=== PATIENT | male | born 1960 | race African-American/Black ===

== ENCOUNTER 2016-05-04 18:46 | Inpatient (IN) | payer OTHER ==
[~2016-05-04] VITALS: Ht 182.9 cm; Wt 93.4 kg
[~2016-05-04 18:46] MED LIST: ALBU2.5V12 NEB; CLON0.3P TD; HYDR-4076 GT; INSU300I SQ; IPRA0.2S9 IH; LABE100T GT; LACT10SO7 GT; LEVE500V GT
[2016-05-04] MEDS ORDERED: VANCOMYCIN 1 GM in IV D5W 250 ML IV ONE (21:00)
[2016-05-04] MEDS ORDERED: IV SET PRIMARY PUMP SET 1 EA INFUS.SET MC ONE ×2 (21:02→23:33)
[2016-05-04 22:11] LABS: BASOPHILS % (AUTO) 0.3 % (0.0-2.0); DIFF TOTAL % 100 %; EOSINOPHILS # (AUTO) 0.4 /CMM (0.0-0.7); HEMATOCRIT 35 % (39-51); HEMOGLOBIN 11.6 g/dL (13.5-17.5); LYMPHOCYTES # (AUTO) 1.8 /CMM (0.8-4.8); LYMPHOCYTES % (AUTO) 12.7 % (20.0-44.0); MEAN CORPUSCULAR HEMOGLOBIN 32 PG (26.0-33.0); MEAN CORPUSCULAR HGB CONC 33 g/dl (31.0-36.0); MEAN CORPUSCULAR VOLUME 95 fL (80-96); MONOCYTES # (AUTO) 1.1 /CMM (0.1-1.30); MONOCYTES % (AUTO) 8.2 % (2.0-12.0); NEUTROPHILS # (AUTO) 10.6 /CMM (1.8-8.9); NEUTROPHILS % (AUTO) 75.8 % (43.0-81.0); PLATELET COUNT (AUTO) 346 /CMM (150-450); RED BLOOD CELL COUNT(AUTO) 3.65 MIL/uL (4.5-6.0)
[2016-05-04 22:17] LABS: CALCIUM, SERUM 10.3 mg/dL (8.5-10.1); CREATININE 0.9 mg/dL (0.6-1.3); POTASSIUM 4.5 mmol/L (3.5-5.1)
[2016-05-04 22:23] LABS: ALBUMIN 4.2 g/dL (3.4-5.0); BILIRUBIN,DIRECT 0.1 mg/dL (0.0-0.2); BILIRUBIN,TOTAL 0.3 mg/dL (0.2-1.0); INDIRECT BILIRUBIN 0.2 mg/dL (0.0-1.1); TOTAL PROTEIN, SERUM 9.3 g/dL (6.4-8.2)
[2016-05-04] MEDS ORDERED: MAG HYDROX/AL HYDROX/SIMETH 30 ML UDC PO PRN (23:00)
[2016-05-04] MEDS ORDERED: MORPHINE SULFATE INJ 2 MG/ML DISP.SYRIN IV PRN (23:00)
[2016-05-04] MEDS ORDERED: ACETAMINOPHEN 325 MG TABLET PO PRN (23:00)
[2016-05-04] MEDS ORDERED: ONDANSETRON HCL/PF 4 MG/2 ML VIAL IVP PRN (23:00)
[2016-05-04] MEDS ORDERED: ENOXAPARIN SODIUM 40 MG/0.4 ML DISP.SYRIN SQ SCH (23:00)
[2016-05-04] MEDS ORDERED: IV NS 0.9% 1,000 ML ONE (23:33)
[2016-05-04] MEDS ORDERED: MORPHINE SULFATE INJ 2 MG/ML DISP.SYRIN ONE (23:34)
[2016-05-04] MEDS ORDERED: ENOXAPARIN SODIUM 40 MG/0.4 ML DISP.SYRIN SQ ONE (23:34)
[2016-05-04] MEDS: IV NS 0.9% 1,000 ML IV PRN (23:49)
[2016-05-05] VITALS: BP 146/100
[2016-05-05] MEDS ORDERED: DEXTROSE 50%-WATER 50 ML DISP.SYRIN IV PRN
[2016-05-05] MEDS ORDERED: LEVETIRACETAM (500MG) 500 MG/5 ML VIAL IV SCH
[2016-05-05] MEDS: INSULIN REGULAR, HUMAN 100 UNIT/ML 3 ML VIAL SQ PRN ×4 (00:46→17:33)
[2016-05-05] MEDS: BLOOD SUGAR DIAGNOSTIC 1 EACH STRIP IN SCH ×5 (00:49→23:44)
[2016-05-05] MEDS ORDERED: LEVETIRACETAM SOL (5 ML) 100 MG/ML UDC ONE (01:10)
[2016-05-05] MEDS: LEVETIRACETAM SOL (5 ML) 100 MG/ML UDC GT SCH ×3 (01:21→20:56)
[2016-05-05] MEDS ORDERED: LEVALBUTEROL HCL NEB 1.25 MG/0.5 ML VIAL.NEB ONE (01:33)
[2016-05-05] MEDS ORDERED: IPRATROPIUM NEB FS 0.5 MG/2.5 ML AMPUL.NEB ONE (01:33)
[2016-05-05] MEDS: ALBUTEROL FS 2.5 MG/0.5 ML VIAL.NEB NEB SCH ×4 (01:45→19:32)
[2016-05-05] MEDS: IPRATROPIUM NEB FS 0.5 MG/2.5 ML AMPUL.NEB IH PRN ×3 (01:45→14:08)
[2016-05-05] MEDS ORDERED: ALBUTEROL FS 2.5 MG/0.5 ML VIAL.NEB ONE (02:04)
[2016-05-05 04:00] VITALS: BP 138/91
[2016-05-05] MEDS ORDERED: LABETALOL HCL (100MG) 100 MG TABLET ONE (04:47)
[2016-05-05] MEDS ORDERED: VANCOMYCIN 1 GM VIAL ONE (04:51)
[2016-05-05] MEDS ORDERED: SECONDARY IV SET 1 EA INFUS.SET MC ONE ×2 (04:52→16:44)
[2016-05-05] MEDS ORDERED: IV D5W 500 ML IV ONE (04:57)
[2016-05-05] MEDS: LABETALOL HCL (100MG) 100 MG TABLET GT SCH ×3 (04:59→20:56)
[2016-05-05] MEDS ORDERED: VANCOMYCIN 1.25 GM in IV D5W 500 ML IV SCH (05:00)
[2016-05-05 06:46] LABS: BASOPHILS % (AUTO) 0.2 % (0.0-2.0); DIFF TOTAL % 100 %; EOSINOPHILS # (AUTO) 0.4 /CMM (0.0-0.7); EOSINOPHILS % (AUTO) 3.1 % (0.0-6.0); HEMATOCRIT 34 % (39-51); HEMOGLOBIN 11.3 g/dL (13.5-17.5); LYMPHOCYTES # (AUTO) 1.9 /CMM (0.8-4.8); LYMPHOCYTES % (AUTO) 13.4 % (20.0-44.0); MEAN CORPUSCULAR HEMOGLOBIN 32 PG (26.0-33.0); MEAN CORPUSCULAR HGB CONC 34 g/dl (31.0-36.0); MEAN CORPUSCULAR VOLUME 96 fL (80-96); MONOCYTES # (AUTO) 1.3 /CMM (0.1-1.30); MONOCYTES % (AUTO) 9.2 % (2.0-12.0); NEUTROPHILS # (AUTO) 10.5 /CMM (1.8-8.9); NEUTROPHILS % (AUTO) 74.1 % (43.0-81.0); PLATELET COUNT (AUTO) 303 /CMM (150-450); WHITE BLOOD COUNT (AUTO) 14.2 K/uL (4.3-11.0)
[2016-05-05 07:41] LABS: CALCIUM, SERUM 9.5 mg/dL (8.5-10.1); CREATININE 0.6 mg/dL (0.6-1.3); PHOSPHORUS 3.6 mg/dL (2.5-4.9); POTASSIUM 3.8 mmol/L (3.5-5.1)
[2016-05-05] MEDS ORDERED: FEE PK DOSING 1 MIN EA MC ONE (08:01)
[2016-05-05] MEDS: PANTOPRAZOLE 40 MG VIAL IV SCH (09:49)
[2016-05-05] MEDS: hydrALAZINE HCL 25 MG TABLET GT SCH ×2 (09:49→16:35)
[2016-05-05 12:00] VITALS: BP 117/79
[2016-05-05] MEDS: Z GUARD REMEDY 2 OZ OINT TP PRN (13:05)
[2016-05-05] MEDS: IV NS 0.9% 1,000 ML IV PRN ×2 (15:19→23:39)
[2016-05-05 16:00] VITALS: BP_SYST 128; BP_DIAS 56; BP_DIAS 79
[2016-05-05] MEDS: VANCOMYCIN 1.25 GM in IV D5W 500 ML IV SCH (17:13)
[2016-05-05] MEDS ORDERED: LIDOCAINE 1%-EPI 1:100,000 20 ML VIAL IJ ONE (18:00)
[2016-05-05] MEDS ORDERED: BETADINE TP ONE (18:00)
[2016-05-05 20:00] VITALS: BP 131/85
[2016-05-05] MEDS: ENOXAPARIN SODIUM 40 MG/0.4 ML DISP.SYRIN SQ SCH (20:58)
[2016-05-06] VITALS: BP 137/90
[2016-05-06] MEDS: ALBUTEROL FS 2.5 MG/0.5 ML VIAL.NEB NEB SCH ×4 (01:16→19:27)
[2016-05-06 04:00] VITALS: BP 145/92
[2016-05-06 04:31] LABS: BASOPHILS % (AUTO) 0.2 % (0.0-2.0); DIFF TOTAL % 100 %; EOSINOPHILS # (AUTO) 0.5 /CMM (0.0-0.7); EOSINOPHILS % (AUTO) 4.4 % (0.0-6.0); HEMATOCRIT 31 % (39-51); HEMOGLOBIN 10.3 g/dL (13.5-17.5); LYMPHOCYTES # (AUTO) 1.9 /CMM (0.8-4.8); LYMPHOCYTES % (AUTO) 18.6 % (20.0-44.0); MEAN CORPUSCULAR HEMOGLOBIN 32 PG (26.0-33.0); MEAN CORPUSCULAR HGB CONC 33 g/dl (31.0-36.0); MEAN CORPUSCULAR VOLUME 95 fL (80-96); MONOCYTES # (AUTO) 1.3 /CMM (0.1-1.30); MONOCYTES % (AUTO) 12.2 % (2.0-12.0); NEUTROPHILS # (AUTO) 6.7 /CMM (1.8-8.9); NEUTROPHILS % (AUTO) 64.6 % (43.0-81.0); PLATELET COUNT (AUTO) 333 /CMM (150-450); RED BLOOD CELL COUNT(AUTO) 3.23 MIL/uL (4.5-6.0); WHITE BLOOD COUNT (AUTO) 10.4 K/uL (4.3-11.0)
[2016-05-06 04:44] LABS: CALCIUM, SERUM 9.6 mg/dL (8.5-10.1); CREATININE 0.7 mg/dL (0.6-1.3); PHOSPHORUS 3.4 mg/dL (2.5-4.9); POTASSIUM 4.1 mmol/L (3.5-5.1)
[2016-05-06] MEDS: VANCOMYCIN 1.25 GM in IV D5W 500 ML IV SCH (05:36)
[2016-05-06] MEDS: LABETALOL HCL (100MG) 100 MG TABLET GT SCH ×3 (05:37→21:16)
[2016-05-06] MEDS: BLOOD SUGAR DIAGNOSTIC 1 EACH STRIP IN SCH ×3 (05:37→18:26)
[2016-05-06] MEDS: INSULIN REGULAR, HUMAN 100 UNIT/ML 3 ML VIAL SQ PRN ×3 (05:39→18:28)
[2016-05-06] MEDS: IPRATROPIUM NEB FS 0.5 MG/2.5 ML AMPUL.NEB IH PRN ×2 (07:29→13:33)
[2016-05-06 08:00] VITALS: BP 134/88
[2016-05-06] MEDS: LEVETIRACETAM SOL (5 ML) 100 MG/ML UDC GT SCH ×2 (09:27→21:15)
[2016-05-06] MEDS: PANTOPRAZOLE 40 MG VIAL IV SCH (09:27)
[2016-05-06] MEDS: hydrALAZINE HCL 25 MG TABLET GT SCH ×2 (09:27→16:36)
[2016-05-06 12:00] VITALS: BP 115/71
[2016-05-06 16:00] VITALS: BP 133/86
[2016-05-06] MEDS: VANCOMYCIN 1 GM in IV D5W 250 ML IV SCH (16:34)
[2016-05-06] MEDS: IV NS 0.9% 1,000 ML IV PRN (16:35)
[2016-05-06 20:00] VITALS: BP 124/92
[2016-05-06] MEDS: ENOXAPARIN SODIUM 40 MG/0.4 ML DISP.SYRIN SQ SCH (21:17)
[2016-05-07] VITALS: BP 140/89
[2016-05-07] MEDS ORDERED: CLONIDINE HCL 0.3 MG/24H PTWK 1 EA PATCH TD SCH
[2016-05-07] MEDS ORDERED: CLONIDINE HCL 0.3 MG/24H PTWK 1 EA PATCH TD ONE (00:29)
[2016-05-07] MEDS: PIPERACILLIN /TAZOBACTAM 3.375 G in IV D5W 50 ML IV SCH ×3 (00:46→13:46)
[2016-05-07] MEDS: BLOOD SUGAR DIAGNOSTIC 1 EACH STRIP IN SCH ×3 (00:46→13:46)
[2016-05-07] MEDS ORDERED: SECONDARY IV SET 1 EA INFUS.SET MC ONE (00:48)
[2016-05-07] MEDS: ALBUTEROL FS 2.5 MG/0.5 ML VIAL.NEB NEB SCH ×3 (01:27→13:19)
[2016-05-07 04:00] VITALS: BP 131/80
[2016-05-07] MEDS: LABETALOL HCL (100MG) 100 MG TABLET GT SCH ×2 (06:24→13:47)
[2016-05-07] MEDS: VANCOMYCIN 1 GM in IV D5W 250 ML IV SCH (06:24)
[2016-05-07] MEDS: IV NS 0.9% 1,000 ML IV PRN (06:25)
[2016-05-07] MEDS: INSULIN REGULAR, HUMAN 100 UNIT/ML 3 ML VIAL SQ PRN ×2 (06:30→13:51)
[2016-05-07 07:05] LABS: BASOPHILS % (AUTO) 0.3 % (0.0-2.0); EOSINOPHILS % (AUTO) 4.2 % (0.0-6.0); HEMATOCRIT 29 % (39-51); HEMOGLOBIN 9.8 g/dL (13.5-17.5); LYMPHOCYTES % (AUTO) 20.4 % (20.0-44.0); MEAN CORPUSCULAR HEMOGLOBIN 32 PG (26.0-33.0); MEAN CORPUSCULAR HGB CONC 33 g/dl (31.0-36.0); MEAN CORPUSCULAR VOLUME 95 fL (80-96); MONOCYTES % (AUTO) 13.5 % (2.0-12.0); NEUTROPHILS % (AUTO) 61.6 % (43.0-81.0); PLATELET COUNT (AUTO) 319 /CMM (150-450); RED BLOOD CELL COUNT(AUTO) 3.12 MIL/uL (4.5-6.0); WHITE BLOOD COUNT (AUTO) 9.3 K/uL (4.3-11.0)
[2016-05-07 07:06] LABS: DIFF TOTAL % 100 %; EOSINOPHILS # (AUTO) 0.4 /CMM (0.0-0.7); LYMPHOCYTES # (AUTO) 1.9 /CMM (0.8-4.8); MONOCYTES # (AUTO) 1.3 /CMM (0.1-1.30); NEUTROPHILS # (AUTO) 5.7 /CMM (1.8-8.9)
[2016-05-07 07:27] LABS: CALCIUM, SERUM 9.5 mg/dL (8.5-10.1); CREATININE 0.8 mg/dL (0.6-1.3); POTASSIUM 3.8 mmol/L (3.5-5.1)
[2016-05-07 08:00] VITALS: BP 112/73
[2016-05-07] MEDS: PANTOPRAZOLE 40 MG VIAL IV SCH (10:13)
[2016-05-07] MEDS: LEVETIRACETAM SOL (5 ML) 100 MG/ML UDC GT SCH (10:13)
[2016-05-07] MEDS: hydrALAZINE HCL 25 MG TABLET GT SCH (10:17)
[2016-05-07] MEDS: Z GUARD REMEDY 2 OZ OINT TP PRN (10:19)
[2016-05-07 12:00] VITALS: BP 110/59
[2016-05-07 13:47] VITALS: BP 110/59
== END 2016-05-07 18:02 | DRG 383 ==
LOC: ER 18:52 → TELE1 22:39
PROVIDERS: ADMIT Internal Medicine; ATTEND Internal Medicine
PROC: 5A1945Z Respiratory Ventilation, 24-96 Consecutive Hours (ICD-10-PCS; principal; 2016-05-04)
PROC: 0H95XZZ Drainage of Chest Skin, External Approach (ICD-10-PCS; 2016-05-06)
DX: L03.313 Cellulitis of chest wall (principal); G93.1 Anoxic brain damage, not elsewhere classified; Z99.11 Dependence on respirator [ventilator] status; N17.9 Acute kidney failure, unspecified; E87.0 Hyperosmolality and hypernatremia; J96.11 Chronic respiratory failure with hypoxia; R53.2 Functional quadriplegia; Z93.1 Gastrostomy status; E11.9 Type 2 diabetes mellitus without complications; D63.8 Anemia in other chronic diseases classified elsewhere; Z86.73 Personal history of transient ischemic attack (TIA), and cerebral infarction without residual deficits; L02.213 Cutaneous abscess of chest wall; Z79.4 Long term (current) use of insulin; E78.5 Hyperlipidemia, unspecified; I10 Essential (primary) hypertension; I25.10 Atherosclerotic heart disease of native coronary artery without angina pectoris; J98.11 Atelectasis; R13.10 Dysphagia, unspecified; Z93.0 Tracheostomy status; Z86.74 Personal history of sudden cardiac arrest
CPT/HCPCS: 31720; 36415; 71010-TC; 80048-TC; 80076-TC; 80202-TC; 82962-TC; 83735-TC; 84100-TC; 85025-TC; 87040-TC; 87070-TC; 87081-TC; 87186-TC; 94002-TC; 94003-TC; A4606; A6253; A6402; A6403; A6407; C9113; J1650; J1815; J1953; J2270; J2543; J3370; J3490; J7030; J7060; Z7610

== ENCOUNTER 2017-10-24 12:09 | Inpatient (IN) | payer OTHER ==
[~2017-10-24] VITALS: Ht 177.8 cm; Wt 118.8 kg
[~2017-10-24 12:09] MED LIST changes: -ALBU2.5V12 NEB; +ALBU2.5V13 NEB; -LABE100T GT; +LABE100T5 GT
[2017-10-24] MEDS ORDERED: ASPI-1169 GT (12:31)
[2017-10-24] MEDS ORDERED: OMEP20CA10 GT (12:31)
[2017-10-24] MEDS ORDERED: ISOS10TA2 GT (12:31)
[2017-10-24] MEDS ORDERED: POTA20PA34 GT (12:31)
[2017-10-24] MEDS ORDERED: FURO-145 GT (12:31)
[2017-10-24] MEDS ORDERED: METF500T6 GT (12:31)
[2017-10-24] MEDS ORDERED: BACL10TA GT (12:31)
[2017-10-24] MEDS ORDERED: CHLO473M5 MM (12:31)
[2017-10-24] MEDS ORDERED: HYDR-4076 GT (12:31)
[2017-10-24] MEDS ORDERED: BISA10SU8 RC (12:31)
[2017-10-24] MEDS ORDERED: MAGN400O6 GT (12:31)
[2017-10-24] MEDS ORDERED: POLY17PO4 GT (12:31)
[2017-10-24] MEDS ORDERED: NA P133E RC ×2 (12:31)
[2017-10-24] MEDS ORDERED: ACET650S26 GT (12:31)
[2017-10-24] MEDS ORDERED: NUT.237L30 GT (12:35)
[2017-10-24] MEDS ORDERED: IV NS 0.9% 1,000 ML BAG IV ONE (13:00)
[2017-10-24 13:16] LABS: BASOPHILS # (AUTO) 0.1 /CMM (0.0-0.2); BASOPHILS % (AUTO) 0.9 % (0.0-2.0); EOSINOPHILS % (AUTO) 4.3 % (0.0-6.0); HEMATOCRIT 30 % (39-51); HEMOGLOBIN 10.5 g/dL (13.5-17.5); LYMPHOCYTES # (AUTO) 1.4 /CMM (0.8-4.8); MEAN CORPUSCULAR HEMOGLOBIN 32 PG (26.0-33.0); MEAN CORPUSCULAR HGB CONC 35 g/dl (31.0-36.0); MEAN CORPUSCULAR VOLUME 92 fL (80-96); MONOCYTES # (AUTO) 0.9 /CMM (0.1-1.30); MONOCYTES % (AUTO) 11.1 % (2.0-12.0); NEUTROPHILS # (AUTO) 5.4 /CMM (1.8-8.9); NEUTROPHILS % (AUTO) 66.7 % (43.0-81.0); PLATELET COUNT (AUTO) 230 /CMM (150-450); WHITE BLOOD COUNT (AUTO) 8.1 K/uL (4.3-11.0)
[2017-10-24 13:33] LABS: BILIRUBIN,URINE Negative (NEGATIVE); BLOOD, URINE Moderate Ery/uL (NEGATIVE); COLOR,URINE Yellow (YELLOW); KETONES,URINE Negative (NEGATIVE); LEUKOCYTE ESTERASE ,URINE Large (NEGATIVE); NITRITE, URINE Positive (NEGATIVE); PROTEIN,URINE 100 mg/dl (NEGATIVE); UGLUCOSE Negative (NEGATIVE); UROBILINOGEN,URINE 0.2 EU/dL (0.2)
[2017-10-24 13:34] LABS: CALCIUM, SERUM 9.2 mg/dL (8.5-10.1); CARBON DIOXIDE 22 mmol/L (21-32); CHLORIDE 103 mmol/L (98-107); CREATININE 0.6 mg/dL (0.6-1.3); GLUCOSE 104 mg/dL (74-106); POTASSIUM 3.8 mmol/L (3.5-5.1); SODIUM SERUM 135 mmol/L (136-145); UREA NITROGEN, BLOOD 13 mg/dL (7-18)
[2017-10-24 13:40] LABS: ALANINE AMINOTRANSFERASE 21 U/L (12-78); ALBUMIN 3.8 g/dL (3.4-5.0); ALKALINE PHOSPHATASE 78 U/L (46-116); ASPARTATE AMINOTRANSFERASE 11 U/L (15-37); BILIRUBIN,DIRECT 0.1 mg/dL (0.0-0.2); BILIRUBIN,TOTAL 0.3 mg/dL (0.2-1.0); TOTAL PROTEIN, SERUM 8.1 g/dL (6.4-8.2)
[2017-10-24 13:42] LABS: TROPONIN I < 0.017 ng/mL (0.00-0.056)
[2017-10-24 13:43] LABS: INR 0.98 (0.85-1.15)
[2017-10-24 13:53] LABS: APPEARANCE,URINE SLIGHTLY CLOUDY (CLEAR)
[2017-10-24 14:00] LABS: BACTERIA,URINE Moderate /HPF (None Seen); WBC,URINE 51-80 /HPF (0-3)
[2017-10-24] MEDS ORDERED: CEFTRIAXONE 1GM BAG (ER ONLY) 50 ML IV ONE (14:00)
[2017-10-24 14:01] LABS: SQUAMOUS EPITHELIAL CELL,UR Few /HPF (None Seen)
[2017-10-24 20:00] VITALS: BP_SYST 114; BP_SYST 136; BP_DIAS 69; BP_DIAS 85
[2017-10-24] MEDS ORDERED: ALBUTEROL FS 2.5 MG/0.5 ML VIAL.NEB NEB PRN (20:00)
[2017-10-24] MEDS ORDERED: DEXTROSE 50%-WATER 50 ML DISP.SYRIN IV PRN (20:00)
[2017-10-24] MEDS ORDERED: IPRATROPIUM NEB FS 0.5 MG/2.5 ML AMPUL.NEB IH PRN (20:00)
[2017-10-24] MEDS ORDERED: IV D5/0.45 NACL 1,000 ML IV PRN (21:00)
[2017-10-24] MEDS: IV D5/0.45 NACL 1,000 ML IV PRN (22:11)
[2017-10-25] VITALS (7 sets, daily range): BP systolic 93–149; BP diastolic 52–91
[2017-10-25] MEDS: BLOOD SUGAR DIAGNOSTIC 1 EACH STRIP IN SCH ×4 (00:16→17:24)
[2017-10-25] MEDS: ALBUTEROL FS 2.5 MG/0.5 ML VIAL.NEB NEB SCH ×4 (01:58→19:39)
[2017-10-25] MEDS: IPRATROPIUM NEB FS 0.5 MG/2.5 ML AMPUL.NEB IH SCH ×4 (01:58→19:39)
[2017-10-25 07:01] LABS: BASOPHILS % (AUTO) 0.3 % (0.0-2.0); EOSINOPHILS % (AUTO) 2.3 % (0.0-6.0); HEMATOCRIT 32 % (39-51); HEMOGLOBIN 10.7 g/dL (13.5-17.5); LYMPHOCYTES # (AUTO) 1.5 /CMM (0.8-4.8); LYMPHOCYTES % (AUTO) 14.8 % (20.0-44.0); MEAN CORPUSCULAR HEMOGLOBIN 32 PG (26.0-33.0); MEAN CORPUSCULAR HGB CONC 34 g/dl (31.0-36.0); MEAN CORPUSCULAR VOLUME 96 fL (80-96); MONOCYTES # (AUTO) 1.2 /CMM (0.1-1.30); MONOCYTES % (AUTO) 11.9 % (2.0-12.0); NEUTROPHILS # (AUTO) 7.2 /CMM (1.8-8.9); NEUTROPHILS % (AUTO) 70.7 % (43.0-81.0); PLATELET COUNT (AUTO) 264 /CMM (150-450); RDW COEFFICIENT OF VARIATION 14.8 (11.5-15.0); RED BLOOD CELL COUNT(AUTO) 3.35 MIL/uL (4.5-6.0); WHITE BLOOD COUNT (AUTO) 10.2 K/uL (4.3-11.0)
[2017-10-25 07:13] LABS: CALCIUM, SERUM 8.9 mg/dL (8.5-10.1); CREATININE 0.6 mg/dL (0.6-1.3); POTASSIUM 3.8 mmol/L (3.5-5.1)
[2017-10-25] MEDS ORDERED: Z GUARD REMEDY 2 OZ OINT TP PRN (11:00)
[2017-10-25] MEDS: IV D5/0.45 NACL 1,000 ML IV PRN (11:38)
[2017-10-25] MEDS: HYDROGEL DRESSING 90 GM TUBE TP SCH (11:43)
[2017-10-25] MEDS: Z GUARD REMEDY 2 OZ OINT TP SCH (11:43)
[2017-10-25] MEDS: INSULIN REGULAR, HUMAN 100 UNIT/ML 3 ML VIAL SQ PRN (11:46)
[2017-10-26] VITALS: BP 136/93
[2017-10-26] MEDS: BLOOD SUGAR DIAGNOSTIC 1 EACH STRIP IN SCH ×4 (00:27→17:54)
[2017-10-26] MEDS: IPRATROPIUM NEB FS 0.5 MG/2.5 ML AMPUL.NEB IH SCH ×4 (00:49→20:09)
[2017-10-26] MEDS: ALBUTEROL FS 2.5 MG/0.5 ML VIAL.NEB NEB SCH ×4 (00:49→20:09)
[2017-10-26] MEDS: IV D5/0.45 NACL 1,000 ML IV PRN ×2 (03:36→20:56)
[2017-10-26 04:00] VITALS: BP 131/98
[2017-10-26] MEDS: LIPASE/PROTEASE/AMYLASE 1 EACH CAPSULE.DR PO SCH ×4 (05:08→18:00)
[2017-10-26] MEDS: GLUCERNA 1.2 1,000 ML BOTTLE GT SCH ×4 (05:08→18:00)
[2017-10-26 08:00] VITALS: BP 136/94
[2017-10-26] MEDS: HYDROGEL DRESSING 90 GM TUBE TP SCH (09:13)
[2017-10-26] MEDS: Z GUARD REMEDY 2 OZ OINT TP SCH (09:14)
[2017-10-26 12:00] VITALS: BP 135/90
[2017-10-26 16:00] VITALS: BP 137/94
[2017-10-26 20:00] VITALS: BP_SYST 154; BP_DIAS 121; BP_DIAS 90
[2017-10-27] VITALS (8 sets, daily range): BP systolic 100–143; BP diastolic 54–94
[2017-10-27] MEDS: BLOOD SUGAR DIAGNOSTIC 1 EACH STRIP IN SCH ×4 (00:26→17:09)
[2017-10-27] MEDS: ALBUTEROL FS 2.5 MG/0.5 ML VIAL.NEB NEB SCH ×4 (01:51→20:07)
[2017-10-27] MEDS: IPRATROPIUM NEB FS 0.5 MG/2.5 ML AMPUL.NEB IH SCH ×4 (01:51→20:07)
[2017-10-27] MEDS: LIPASE/PROTEASE/AMYLASE 1 EACH CAPSULE.DR PO SCH ×4 (06:00→17:09)
[2017-10-27] MEDS: GLUCERNA 1.2 1,000 ML BOTTLE GT SCH ×4 (06:00→17:09)
[2017-10-27] MEDS: HYDROGEL DRESSING 90 GM TUBE TP SCH (08:17)
[2017-10-27] MEDS: Z GUARD REMEDY 2 OZ OINT TP SCH (08:18)
[2017-10-27 08:58] LABS: BASOPHILS % (AUTO) 0.2 % (0.0-2.0); EOSINOPHILS % (AUTO) 2.2 % (0.0-6.0); HEMATOCRIT 32 % (39-51); HEMOGLOBIN 10.5 g/dL (13.5-17.5); LYMPHOCYTES # (AUTO) 0.8 /CMM (0.8-4.8); LYMPHOCYTES % (AUTO) 7.3 % (20.0-44.0); MEAN CORPUSCULAR HEMOGLOBIN 31 PG (26.0-33.0); MEAN CORPUSCULAR HGB CONC 32 g/dl (31.0-36.0); MEAN CORPUSCULAR VOLUME 96 fL (80-96); MONOCYTES # (AUTO) 1.3 /CMM (0.1-1.30); MONOCYTES % (AUTO) 11.6 % (2.0-12.0); NEUTROPHILS # (AUTO) 8.9 /CMM (1.8-8.9); NEUTROPHILS % (AUTO) 78.7 % (43.0-81.0); PLATELET COUNT (AUTO) 199 /CMM (150-450); RDW COEFFICIENT OF VARIATION 15.2 (11.5-15.0); RED BLOOD CELL COUNT(AUTO) 3.39 MIL/uL (4.5-6.0); WHITE BLOOD COUNT (AUTO) 11.3 K/uL (4.3-11.0)
[2017-10-27 09:25] LABS: ALBUMIN 3.4 g/dL (3.4-5.0); BILIRUBIN,TOTAL 0.5 mg/dL (0.2-1.0); CALCIUM, SERUM 8.7 mg/dL (8.5-10.1); CREATININE 0.6 mg/dL (0.6-1.3); POTASSIUM 3.9 mmol/L (3.5-5.1); TOTAL PROTEIN, SERUM 7.3 g/dL (6.4-8.2)
[2017-10-27] MEDS: IV D5/0.45 NACL 1,000 ML IV PRN (11:19)
[2017-10-27] MEDS: INSULIN REGULAR, HUMAN 100 UNIT/ML 3 ML VIAL SQ PRN ×2 (12:18→17:30)
[2017-10-28] VITALS: BP 132/87
[2017-10-28] MEDS: BLOOD SUGAR DIAGNOSTIC 1 EACH STRIP IN SCH ×4 (00:26→18:05)
[2017-10-28] MEDS: INSULIN REGULAR, HUMAN 100 UNIT/ML 3 ML VIAL SQ PRN ×4 (00:27→11:24)
[2017-10-28] MEDS: IPRATROPIUM NEB FS 0.5 MG/2.5 ML AMPUL.NEB IH SCH ×4 (02:26→19:55)
[2017-10-28] MEDS: ALBUTEROL FS 2.5 MG/0.5 ML VIAL.NEB NEB SCH ×4 (02:27→19:55)
[2017-10-28] MEDS: IV D5/0.45 NACL 1,000 ML IV PRN ×2 (03:01→16:12)
[2017-10-28 04:00] VITALS: BP 132/87
[2017-10-28 08:00] VITALS: BP 124/80
[2017-10-28] MEDS: HYDROGEL DRESSING 90 GM TUBE TP SCH (08:39)
[2017-10-28] MEDS: Z GUARD REMEDY 2 OZ OINT TP SCH (08:39)
[2017-10-28 12:00] VITALS: BP 116/80
[2017-10-28] MEDS: LIPASE/PROTEASE/AMYLASE 1 EACH CAPSULE.DR PO SCH ×2 (12:00→18:00)
[2017-10-28] MEDS: GLUCERNA 1.2 1,000 ML BOTTLE GT SCH ×2 (12:00→18:00)
[2017-10-28 16:00] VITALS: BP_SYST 105; BP_SYST 118; BP_DIAS 54; BP_DIAS 79
[2017-10-28] MEDS ORDERED: NS 0.9% IV SCH (18:00)
[2017-10-28] MEDS ORDERED: LEVETIRACETAM IV SCH (18:00)
[2017-10-28] MEDS ORDERED: LEVETIRACETAM (500MG) 500 MG in IV NS 0.9% 100 ML IV SCH (18:00)
[2017-10-28] MEDS: LEVETIRACETAM (500MG) 500 MG in IV NS 0.9% 100 ML IV SCH (18:21)
[2017-10-28 20:00] VITALS: BP 127/72
[2017-10-29] VITALS: BP 131/78
[2017-10-29] MEDS: BLOOD SUGAR DIAGNOSTIC 1 EACH STRIP IN SCH ×4 (00:38→17:05)
[2017-10-29] MEDS: INSULIN REGULAR, HUMAN 100 UNIT/ML 3 ML VIAL SQ PRN ×3 (00:46→11:37)
[2017-10-29] MEDS: IPRATROPIUM NEB FS 0.5 MG/2.5 ML AMPUL.NEB IH SCH ×4 (02:09→15:56)
[2017-10-29] MEDS: ALBUTEROL FS 2.5 MG/0.5 ML VIAL.NEB NEB SCH ×4 (02:09→20:14)
[2017-10-29 04:00] VITALS: BP 139/83
[2017-10-29] MEDS: GLUCERNA 1.2 1,000 ML BOTTLE GT SCH ×4 (05:24→18:10)
[2017-10-29] MEDS: LIPASE/PROTEASE/AMYLASE 1 EACH CAPSULE.DR PO SCH ×4 (05:24→18:19)
[2017-10-29 08:00] VITALS: BP 100/68
[2017-10-29] MEDS: Z GUARD REMEDY 2 OZ OINT TP SCH (08:45)
[2017-10-29] MEDS: HYDROGEL DRESSING 90 GM TUBE TP SCH (08:46)
[2017-10-29] MEDS: LEVETIRACETAM (500MG) 500 MG in IV NS 0.9% 100 ML IV SCH (09:39)
[2017-10-29 12:00] VITALS: BP 110/73
[2017-10-29 16:00] VITALS: BP 119/76
[2017-10-29 20:00] VITALS: BP 124/81
[2017-10-29] MEDS: LEVETIRACETAM SOL (5 ML) 100 MG/ML UDC GT SCH (21:16)
[2017-10-30] VITALS: BP 102/69
[2017-10-30] MEDS: BLOOD SUGAR DIAGNOSTIC 1 EACH STRIP IN SCH ×6 (00:52→23:51)
[2017-10-30] MEDS: LIPASE/PROTEASE/AMYLASE 1 EACH CAPSULE.DR PO SCH ×5 (00:52→23:51)
[2017-10-30] MEDS: GLUCERNA 1.2 1,000 ML BOTTLE GT SCH ×4 (00:53→18:30)
[2017-10-30] MEDS: ALBUTEROL FS 2.5 MG/0.5 ML VIAL.NEB NEB SCH ×4 (02:02→19:54)
[2017-10-30] MEDS: IPRATROPIUM NEB FS 0.5 MG/2.5 ML AMPUL.NEB IH SCH ×4 (02:02→19:53)
[2017-10-30 04:00] VITALS: BP 106/72
[2017-10-30] MEDS: INSULIN REGULAR, HUMAN 100 UNIT/ML 3 ML VIAL SQ PRN ×2 (05:41→13:08)
[2017-10-30 08:00] VITALS: BP 110/85
[2017-10-30] MEDS: LEVETIRACETAM SOL (5 ML) 100 MG/ML UDC GT SCH ×2 (09:10→21:27)
[2017-10-30] MEDS: Z GUARD REMEDY 2 OZ OINT TP SCH (09:10)
[2017-10-30 12:00] VITALS: BP 120/83
[2017-10-30 16:00] VITALS: BP 118/74
[2017-10-30 20:00] VITALS: BP 142/87
[2017-10-30] MEDS ORDERED: ATORVASTATIN 10 MG TABLET PO SCH (22:00)
[2017-10-31] VITALS: BP 139/85
[2017-10-31] MEDS: GLUCERNA 1.2 1,000 ML BOTTLE GT SCH ×4 (00:06→17:29)
[2017-10-31] MEDS: INSULIN REGULAR, HUMAN 100 UNIT/ML 3 ML VIAL SQ PRN ×3 (00:09→12:25)
[2017-10-31] MEDS: IPRATROPIUM NEB FS 0.5 MG/2.5 ML AMPUL.NEB IH SCH ×3 (01:42→13:20)
[2017-10-31] MEDS: ALBUTEROL FS 2.5 MG/0.5 ML VIAL.NEB NEB SCH ×3 (01:42→13:19)
[2017-10-31 04:00] VITALS: BP 133/85
[2017-10-31] MEDS: BLOOD SUGAR DIAGNOSTIC 1 EACH STRIP IN SCH ×3 (05:28→17:29)
[2017-10-31] MEDS: LIPASE/PROTEASE/AMYLASE 1 EACH CAPSULE.DR PO SCH ×3 (05:28→17:29)
[2017-10-31 06:20] LABS: BASOPHILS % (AUTO) 0.3 % (0.0-2.0); EOSINOPHILS % (AUTO) 5.1 % (0.0-6.0); HEMATOCRIT 31 % (39-51); HEMOGLOBIN 10.3 g/dL (13.5-17.5); LYMPHOCYTES # (AUTO) 1.4 /CMM (0.8-4.8); LYMPHOCYTES % (AUTO) 17.2 % (20.0-44.0); MEAN CORPUSCULAR HEMOGLOBIN 32 PG (26.0-33.0); MEAN CORPUSCULAR HGB CONC 34 g/dl (31.0-36.0); MEAN CORPUSCULAR VOLUME 95 fL (80-96); MONOCYTES # (AUTO) 0.9 /CMM (0.1-1.30); MONOCYTES % (AUTO) 10.5 % (2.0-12.0); NEUTROPHILS # (AUTO) 5.5 /CMM (1.8-8.9); NEUTROPHILS % (AUTO) 66.9 % (43.0-81.0); PLATELET COUNT (AUTO) 235 /CMM (150-450); RDW COEFFICIENT OF VARIATION 15.4 (11.5-15.0); RED BLOOD CELL COUNT(AUTO) 3.24 MIL/uL (4.5-6.0); WHITE BLOOD COUNT (AUTO) 8.2 K/uL (4.3-11.0)
[2017-10-31 06:31] VITALS: BP 139/85
[2017-10-31 08:00] VITALS: BP 124/85
[2017-10-31] MEDS ORDERED: ASPIRIN 81 MG TAB.CHEW GT SCH (09:00)
[2017-10-31] MEDS: LEVETIRACETAM SOL (5 ML) 100 MG/ML UDC GT SCH (09:18)
[2017-10-31] MEDS: HYDROGEL DRESSING 90 GM TUBE TP PRN ×2 (09:19→09:20)
[2017-10-31] MEDS: Z GUARD REMEDY 2 OZ OINT TP SCH (09:20)
[2017-10-31 12:00] VITALS: BP 114/75
[2017-10-31 16:00] VITALS: BP 114/75
== END 2017-10-31 17:58 | DRG 282 ==
LOC: ER 12:11 → TELE1 15:03
PROVIDERS: ADMIT Internal Medicine; ATTEND Internal Medicine
PROC: 5A1955Z Respiratory Ventilation, Greater than 96 Consecutive Hours (ICD-10-PCS; principal; 2017-10-24)
DX: K86.89 Other specified diseases of pancreas (principal); G93.1 Anoxic brain damage, not elsewhere classified; R40.3 Persistent vegetative state; Z99.11 Dependence on respirator [ventilator] status; J96.11 Chronic respiratory failure with hypoxia; K56.609 Unspecified intestinal obstruction, unspecified as to partial versus complete obstruction; L89.893 Pressure ulcer of other site, stage 3; Z93.0 Tracheostomy status; R13.10 Dysphagia, unspecified; N39.0 Urinary tract infection, site not specified; K86.1 Other chronic pancreatitis; R14.0 Abdominal distension (gaseous); Z93.1 Gastrostomy status; G40.409 Other generalized epilepsy and epileptic syndromes, not intractable, without status epilepticus; J98.11 Atelectasis; E11.9 Type 2 diabetes mellitus without complications; I10 Essential (primary) hypertension; I25.10 Atherosclerotic heart disease of native coronary artery without angina pectoris; I48.0 Paroxysmal atrial fibrillation; Z86.73 Personal history of transient ischemic attack (TIA), and cerebral infarction without residual deficits; Z86.74 Personal history of sudden cardiac arrest; K56.7 Ileus, unspecified; B96.89 Other specified bacterial agents as the cause of diseases classified elsewhere; E27.8 Other specified disorders of adrenal gland; L98.8 Other specified disorders of the skin and subcutaneous tissue; S71.001A Unspecified open wound, right hip, initial encounter; X58.XXXA Exposure to other specified factors, initial encounter; Y93.9 Activity, unspecified; Y92.129 Unspecified place in nursing home as the place of occurrence of the external cause; D72.829 Elevated white blood cell count, unspecified; D63.8 Anemia in other chronic diseases classified elsewhere; N40.0 Benign prostatic hyperplasia without lower urinary tract symptoms; Z79.84 Long term (current) use of oral hypoglycemic drugs
CPT/HCPCS: 31720; 36415; 71045-TC; 74018; 80048-TC; 80053-TC; 80076-TC; 81000-TC; 82962-TC; 83605-TC; 84484-TC; 85025-TC; 85730-TC; 87040-TC; 87081-TC; 87086-TC; 87186-TC; 94002-TC; 94003-TC; 94760-TC; 94762-TC; 99082-TC; A4606; A6248; A6402; A6407; J0696; J1815; J1953; J3490; J7030; Z7610

== ENCOUNTER 2018-04-16 14:01 | Inpatient (IN) | payer OTHER ==
[~2018-04-16] VITALS: Ht 172.7 cm; Wt 83.9 kg
[~2018-04-16 14:01] MED LIST changes: -CLON0.3P TD; -HYDR-4076 GT; -INSU300I SQ; -LABE100T5 GT; -LACT10SO7 GT; -LEVE500V GT
--- NOTE | 2018-04-16 14:38 | NUR ---
PT'S CURRENT VENT SETTINGS, AC 12, VT 550 FIO2 40% PEEP 5
--- NOTE | 2018-04-16 14:40 | NUR ---
FORTINO VIRK AT BEDSIDE FOR EVAL.
--- NOTE | 2018-04-16 15:10 | NUR ---
RADIOLOGY AT BEDSIDE FOR CHEST XAY.
[2018-04-16 15:12] LABS: BASOPHILS % (AUTO) 0.3 % (0.0-2.0); EOSINOPHILS % (AUTO) 3.9 % (0.0-6.0); HEMATOCRIT 33 % (39-51); HEMOGLOBIN 11.1 g/dL (13.5-17.5); LYMPHOCYTES # (AUTO) 1.2 /CMM (0.8-4.8); LYMPHOCYTES % (AUTO) 10.5 % (20.0-44.0); MEAN CORPUSCULAR HGB CONC 34 g/dl (31.0-36.0); MEAN CORPUSCULAR VOLUME 98 fL (80-96); MONOCYTES # (AUTO) 1.3 /CMM (0.1-1.30); NEUTROPHILS # (AUTO) 8.1 /CMM (1.8-8.9); NEUTROPHILS % (AUTO) 73.3 % (43.0-81.0); PLATELET COUNT (AUTO) 230 /CMM (150-450); RED BLOOD CELL COUNT(AUTO) 3.38 MIL/uL (4.5-6.0)
[2018-04-16 15:27] LABS: CALCIUM, SERUM 9.2 mg/dL (8.5-10.1); CREATININE 0.6 mg/dL (0.6-1.3); POTASSIUM 4.8 mmol/L (3.5-5.1)
[2018-04-16 15:28] LABS: BILIRUBIN,DIRECT 0.1 mg/dL (0.0-0.2); BILIRUBIN,TOTAL 0.4 mg/dL (0.2-1.0); TOTAL PROTEIN, SERUM 8.1 g/dL (6.4-8.2)
--- NOTE | 2018-04-16 15:48 | NUR ---
RT PATIENT TRACHED RECEIVED ON VENT SETTINGS PER FACILITY, NO SOB, NO RESPIRATORY DISTRESS NOTED AT THIS TIME, AMBU BAG AND SPARE TRACH BY HOB, VENT ALARMS ON, AUDIBLE, AND VENT PLUGGED IN RED OUTLET, WILL CONTINUE TO MONITOR. Addendum: 04/16/18 at 1551 by SERENITY HAYES RT Amended: Links added.
[2018-04-16 16:03] LABS: APPEARANCE,URINE Slightly Cloudy (CLEAR); BILIRUBIN,URINE Negative (NEGATIVE); BLOOD, URINE Negative Ery/uL (NEGATIVE); COLOR,URINE Yellow (YELLOW); KETONES,URINE Trace (NEGATIVE); LEUKOCYTE ESTERASE ,URINE Moderate (NEGATIVE); NITRITE, URINE Positive (NEGATIVE); PROTEIN,URINE Trace mg/dl (NEGATIVE); UGLUCOSE 250 MG/DL mg/dL (NEGATIVE); UROBILINOGEN,URINE 0.2 EU/dL (0.2)
[2018-04-16 16:12] LABS: BACTERIA,URINE Moderate /HPF (None Seen); RBC,URINE 0-3 /HPF (0-2); SQUAMOUS EPITHELIAL CELL,UR Few /HPF (None Seen); WBC,URINE 20-50 /HPF (0-3)
[2018-04-16] MEDS ORDERED: VANCOMYCIN 1 GM in IV D5W 250 ML IV ONE (16:30)
[2018-04-16] MEDS ORDERED: CEFAZOLIN 1 GM in IV D5W 50 ML IV ONE (16:30)
--- NOTE | 2018-04-16 16:31 | NUR ---
PT TO RADIOLOGY FOR R THIGH CT SCAN VIA [facility].
[2018-04-16] MEDS ORDERED: CEFTRIAXONE 1GM BAG (ER ONLY) 50 ML IV ONE (16:56)
[2018-04-16] MEDS ORDERED: CEFTRIAXONE 1GM BAG (ER ONLY) 1 GM/50 ML PIGGYBACK IV ONE (17:00)
[2018-04-16] MEDS ORDERED: CEFTRIAXONE 1 G in IV NS 0.9% 50 ML IV ONE (17:00)
--- NOTE | 2018-04-16 17:05 | NUR ---
Pt is assigned to [facility]#: [id number], DX: cellulitis of the right buttocks, and accepting MD: Dr Flo oLw.
--- NOTE | 2018-04-16 17:14 | NUR ---
CALLED REPORT, PT'S NURSE NOT READY.
[2018-04-16] MEDS ORDERED: POLY17PO4 GT (17:26)
[2018-04-16] MEDS ORDERED: SENN-168 GT (17:26)
[2018-04-16] MEDS ORDERED: ASPI-1169 GT (17:26)
[2018-04-16] MEDS ORDERED: AMYL1CAP56 GT (17:26)
[2018-04-16] MEDS ORDERED: NA P133E RC (17:26)
[2018-04-16] MEDS ORDERED: METF-440 GT (17:26)
[2018-04-16] MEDS ORDERED: BISA10SU61 RC (17:26)
[2018-04-16] MEDS ORDERED: MAGN400O6 GT (17:26)
[2018-04-16] MEDS ORDERED: NUT.237L31 GT (17:26)
[2018-04-16] MEDS ORDERED: CHLO473M3 MM (17:26)
[2018-04-16] MEDS ORDERED: ACET160S GT ×2 (17:26)
[2018-04-16] MEDS ORDERED: INSU100I26 SQ (17:26)
[2018-04-16] MEDS ORDERED: CHOL50004 GT (17:26)
[2018-04-16] MEDS ORDERED: LEVE100S2 GT (17:26)
[2018-04-16] MEDS ORDERED: ATOR10TA GT (17:26)
--- NOTE | 2018-04-16 17:59 | NUR ---
REPORT GIVEN TO WILI. AWAITING TRANSFER TO FLOOR.
--- NOTE | 2018-04-16 18:30 | NUR ---
Pt received from Er breathing via trach to vent AC mode 12 TV 550 peep 5 Fio2 40 no acute distress noted vital signs bp 150/103 heart rate 112 oxygen sat 97 temp 97.2 resp 20 pt has sore to right hip oozing blood dressing chabge done , supra pubic in place draining clear yellow urine , pt also has g tube clamped , pt is placed on tele monitor SR , will endorse to shift nurse manager Sr x2 up
--- NOTE | 2018-04-16 19:15 | NUR ---
TELE/RN ADMITTING NOTES RECEIVED PT IN BED, NONVERBAL. WITH INTACT PORTEX#8 TOLERATING VENT SETTINGS: AC 12; TV 550; FIO2 40; AND PEEP 5. SPO2 100%. SR HR 80S ON TELEMONITOR. GTUBE CLAMPED, INTACT AND IN PLACED. SUPRAPUBIC CATH INTACT AND IN PLACED, DRAINING YELLOW COLOR URINE. WITH ONGOING VANCOMYCIN IV ON (R) WRIST G18 IV. HOB ELEVATED. ORIENTED TO ROOM AND USE OF CALL LIGHT. PHYSICAL ASSESSMENT DONE. HOB ELEVATED. SAFETY MEASURES IN PLACED. CALL LIGHT WITHIN EASY REACH. WILL CONT TO MONITOR PAGED DR AKHTAR FOR ADMITTING ORDERS, AWAITING TO CALL BACK
[2018-04-16 20:00] VITALS: BP 125/78
--- NOTE | 2018-04-16 20:00 | NUR ---
RN NOTES RECEIVED MSG FROM DR AKHTAR, CALL LANDSCAPE CREW MEMBER FOR ADMISSION ORDERS CALLED DR AKHTAR'S EXCHANGE [phone], REDIRECTED TO YAN AVILA, LEFT MESSAGE, AWAITING TO CALL BACK
--- NOTE | 2018-04-16 22:30 | NUR ---
RN NOTES CALLED WAREHOUSE SHIFT SUPERVISOR BLACK TOP MACHINE OPERATOR CARMEN CROWE FOR ADMITTING ORDERS. BLACK TOP MACHINE OPERATOR ORDERED ADMIT TO TELE, DIAGNOSIS: CELLULITIS. R HIP XRAY TO RULE OUT OSTEOMYELITIS. ROCEPHIN 1G IVPB QDAILY. VANCOMYCIN 1G IVPB QDAILY, PHARMACY TO DOSE. CONTINUE ALL [facility] MEDS. CBC AND BMP, MG, PHOS IN AM. ALL ORDERS READ BACK TO BLACK TOP MACHINE OPERATOR. ORDERS NOTED AND CARRIED OUT
[2018-04-16] MEDS ORDERED: VANCOMYCIN 1 GM in IV D5W 250 ML IV SCH (23:00)
[2018-04-17] VITALS: BP 100/77
[2018-04-17 04:00] VITALS: BP 94/57
--- NOTE | 2018-04-17 07:02 | NUR ---
RN NOTES PT IN STABLE CONDITION. NO ACUTE CHANGES THROUGHOUT SHIFT. ALL NEEDS ATTENDED. SAFETY MEASURES AND ASPIRATION PRECAUTION OBSERVED AT ALL TIMES. ENDORSED TO AM SHIFT RN FOR AL
[2018-04-17 07:53] LABS: BASOPHILS % (AUTO) 0.3 % (0.0-2.0); EOSINOPHILS % (AUTO) 4.4 % (0.0-6.0); HEMATOCRIT 31 % (39-51); HEMOGLOBIN 10.3 g/dL (13.5-17.5); LYMPHOCYTES # (AUTO) 1.3 /CMM (0.8-4.8); LYMPHOCYTES % (AUTO) 10.8 % (20.0-44.0); MEAN CORPUSCULAR HGB CONC 34 g/dl (31.0-36.0); MEAN CORPUSCULAR VOLUME 96 fL (80-96); MONOCYTES # (AUTO) 1.3 /CMM (0.1-1.30); MONOCYTES % (AUTO) 11.4 % (2.0-12.0); NEUTROPHILS # (AUTO) 8.5 /CMM (1.8-8.9); NEUTROPHILS % (AUTO) 73.1 % (43.0-81.0); PLATELET COUNT (AUTO) 207 /CMM (150-450); RED BLOOD CELL COUNT(AUTO) 3.19 MIL/uL (4.5-6.0); WHITE BLOOD COUNT (AUTO) 11.6 K/uL (4.3-11.0)
[2018-04-17] MEDS ORDERED: FEE PK DOSING 1 MIN EA MC ONE (07:54)
[2018-04-17 08:00] VITALS: BP 96/63
[2018-04-17 08:28] LABS: CALCIUM, SERUM 7.8 mg/dL (8.5-10.1); CREATININE 0.6 mg/dL (0.6-1.3); MAGNESIUM 1.9 mg/dL (1.8-2.4); POTASSIUM 4.1 mmol/L (3.5-5.1)
[2018-04-17] MEDS ORDERED: ACETAMINOPHEN 650 MG/20.3 ML UDC GT PRN ×2 (08:30→09:00)
[2018-04-17] MEDS ORDERED: MAGNESIUM HYDROXIDE 30 ML UDC GT PRN (08:30)
[2018-04-17] MEDS ORDERED: ALBUTEROL FS 2.5 MG/0.5 ML VIAL.NEB NEB PRN (08:30)
[2018-04-17] MEDS ORDERED: BISACODYL SUPP (10 MG) 10 MG/SUPP.RECT SUPP.RECT RC PRN (08:30)
[2018-04-17] MEDS ORDERED: IPRATROPIUM NEB FS 0.5 MG/2.5 ML AMPUL.NEB IH PRN (08:30)
--- NOTE | 2018-04-17 08:35 | NUR ---
Received PT trach on Mechanical Vent. Vent plugged to red outlet, alarms set and audible, ambu bag at bedside, spare trach at bedside. Pt tolerating setting well, no sob or distress noted. Trach patent and secure via trach ties, bilateral breath sounds noted, sx large amount of yellow thick secretions. Will continue to monitor. Addendum: 04/17/18 at 0836 by PAYTON ANTHONY RT Amended: Links added.
[2018-04-17 08:41] LABS: PHOSPHORUS 3.1 mg/dL (2.5-4.9)
[2018-04-17] MEDS ORDERED: CEFTRIAXONE 1 G in IV D5W 50 ML IV SCH ×2 (09:00→17:00)
[2018-04-17] MEDS: POLYETHYLENE GLYCOL 3350 17 GM POWD.PACK GT SCH (09:09)
[2018-04-17] MEDS: METFORMIN 500 MG TABLET GT SCH ×2 (09:11→22:31)
[2018-04-17] MEDS: CHOLECALCIFEROL 1,000 UNIT TABLET (VIT D3) GT SCH (09:11)
[2018-04-17] MEDS: ASPIRIN 81 MG TAB.CHEW GT SCH (09:11)
[2018-04-17] MEDS: SENNOSIDES 8.6 MG TABLET GT SCH ×2 (09:12→18:30)
[2018-04-17] MEDS: CHLORHEXIDINE GLUCONATE 15 ML UDC MM SCH ×2 (09:12→22:31)
[2018-04-17] MEDS: LEVETIRACETAM SOL (5 ML) 100 MG/ML UDC GT SCH ×2 (09:13→22:31)
[2018-04-17] MEDS: VANCOMYCIN 1.25 GM in IV D5W 500 ML IV SCH (09:14)
[2018-04-17] MEDS ORDERED: LIDOCAINE 1%-EPI 1:100,000 20 ML VIAL TP ONE (10:00)
--- NOTE | 2018-04-17 10:24 | NUR ---
SERVICE LIAISON REPRESENTATIVE NOTE TRIED TO CALL PATIENT'S SISTER JUSTIN BUI TO OBTAIN CONSENT FOR RIGHT HIP DEBIRDEMENT. NO ANSWER, LEFT A VOICEMAIL, WILL TRY AGAIN LATER.
[2018-04-17] MEDS ORDERED: SILVER NITRATE APPLICATOR 1 EA BOX TP ONE (10:30)
[2018-04-17] MEDS: INSULIN GLARGINE, 100 UNIT/ML CARTRIDGE SQ SCH ×2 (10:55→22:50)
[2018-04-17 12:00] VITALS: BP 102/69
[2018-04-17] MEDS ORDERED: GLUCERNA 1.5 1,000 ML BOTTLE GT SCH (12:00)
[2018-04-17] MEDS ORDERED: GLUCERNA 1.2 1,000 ML BOTTLE GT SCH (13:35)
[2018-04-17] MEDS ORDERED: DEXTROSE 50%-WATER 50 ML DISP.SYRIN IV PRN (14:00)
--- NOTE | 2018-04-17 14:04 | NUR ---
FEEDER OPERATOR AUTOMATIC NOTE GLUCERNA 1.5 BOLUS SCHEDULED FOR 12PM, BUT UNAVAILABLE. SPOKE WITH DIETITIAN. CHANGED ORDER TO GLUCERNA 1.2. ADMINISTERED GLUCERNA 1.2 300ML BOLUS AT 1PM.
[2018-04-17] MEDS: NEOMY SULF/BACITRAC ZN/POLY 15 GM TUBE TP SCH (14:21)
[2018-04-17] MEDS: LIPASE/PROTEASE/AMYLASE 1 EACH CAPSULE.DR GT SCH ×3 (14:22→22:31)
[2018-04-17] MEDS: ALBUTEROL FS 2.5 MG/0.5 ML VIAL.NEB NEB SCH ×2 (14:36→19:16)
[2018-04-17] MEDS: IPRATROPIUM NEB FS 0.5 MG/2.5 ML AMPUL.NEB IH SCH ×2 (14:36→19:16)
[2018-04-17 16:00] VITALS: BP 104/64
[2018-04-17] MEDS: INSULIN REGULAR, HUMAN 100 UNIT/ML 3 ML VIAL SQ PRN ×2 (18:29→22:51)
[2018-04-17] MEDS: BLOOD SUGAR DIAGNOSTIC 1 EACH STRIP VI SCH ×2 (18:30→22:32)
[2018-04-17] MEDS: GLUCERNA 1.2 1,000 ML BOTTLE GT SCH (18:30)
--- NOTE | 2018-04-17 19:05 | NUR ---
DRILLING INSPECTOR NOTE PATIENT RESTING IN BED IN STABLE CONDITION, NO ACUTE DISTRESS NOTED OR SIGNS OF PAIN. IV SITE ON RIGHT WRIST INTACT SALINE LOCK. SUPRAPUBIC CATHETER INTACT DRAINING YELLOW CLEAR URINE. G TUBE INTACT CLAMPED. SIDE RAILS UP, BED IN LOW LOCKED POSITION, ALARM ON, ENDORSED TO GUN SEALING MACHINE OPERATOR NURSE FOR CONTINUITY OF CARE.
[2018-04-17 20:00] VITALS: BP 116/86
[2018-04-17] MEDS ORDERED: CEFAZOLIN 1 GM in IV NS 0.9% 50 ML IV SCH (21:00)
[2018-04-17] MEDS: NA PHOS,M-B/NA PHOS,DI-BA 1 EA ENEMA RC SCH (22:30)
[2018-04-17] MEDS: ATORVASTATIN 10 MG TABLET GT SCH (22:31)
[2018-04-17] MEDS: D5W IV SCH (22:32)
[2018-04-17] MEDS: NAFCILLIN IV SCH (22:32)
[2018-04-18] MEDS: VANCOMYCIN 1.25 GM in IV D5W 500 ML IV SCH ×3 (00:16→22:19)
[2018-04-18] MEDS: GLUCERNA 1.2 1,000 ML BOTTLE GT SCH ×5 (00:17→23:53)
[2018-04-18 00:30] VITALS: BP 120/90
[2018-04-18] MEDS: ALBUTEROL FS 2.5 MG/0.5 ML VIAL.NEB NEB SCH ×4 (00:59→19:19)
[2018-04-18] MEDS: IPRATROPIUM NEB FS 0.5 MG/2.5 ML AMPUL.NEB IH SCH ×4 (00:59→19:19)
[2018-04-18] MEDS: D5W IV SCH ×4 (03:56→21:25)
[2018-04-18] MEDS: NAFCILLIN IV SCH ×4 (03:56→21:25)
[2018-04-18 04:29] VITALS: BP 113/68
[2018-04-18 07:09] LABS: CALCIUM, SERUM 8.9 mg/dL (8.5-10.1); CREATININE 0.6 mg/dL (0.6-1.3); POTASSIUM 4.1 mmol/L (3.5-5.1)
[2018-04-18] MEDS: INSULIN REGULAR, HUMAN 100 UNIT/ML 3 ML VIAL SQ PRN ×4 (07:55→21:43)
[2018-04-18 08:00] VITALS: BP 113/84
[2018-04-18] MEDS: SENNOSIDES 8.6 MG TABLET GT SCH ×2 (09:53→18:30)
[2018-04-18] MEDS: POLYETHYLENE GLYCOL 3350 17 GM POWD.PACK GT SCH (09:53)
[2018-04-18] MEDS: BLOOD SUGAR DIAGNOSTIC 1 EACH STRIP VI SCH ×4 (09:54→21:26)
[2018-04-18] MEDS: METFORMIN 500 MG TABLET GT SCH ×2 (09:54→21:25)
[2018-04-18] MEDS: LIPASE/PROTEASE/AMYLASE 1 EACH CAPSULE.DR GT SCH ×4 (09:54→21:25)
[2018-04-18] MEDS: CHOLECALCIFEROL 1,000 UNIT TABLET (VIT D3) GT SCH (09:54)
[2018-04-18] MEDS: CHLORHEXIDINE GLUCONATE 15 ML UDC MM SCH ×2 (09:55→21:26)
[2018-04-18] MEDS: ASPIRIN 81 MG TAB.CHEW GT SCH (09:55)
[2018-04-18] MEDS: NEOMY SULF/BACITRAC ZN/POLY 15 GM TUBE TP SCH (09:56)
[2018-04-18] MEDS: INSULIN GLARGINE, 100 UNIT/ML CARTRIDGE SQ SCH ×2 (10:06→21:44)
[2018-04-18] MEDS: LEVETIRACETAM SOL (5 ML) 100 MG/ML UDC GT SCH ×2 (10:07→21:26)
[2018-04-18 12:00] VITALS: BP 97/71
[2018-04-18] MEDS: DAKINS QUARTER STRENGTH (0.125%) 480 ML BOTTLE TOP SCH ×2 (12:43→21:42)
[2018-04-18 16:00] VITALS: BP 96/69
--- NOTE | 2018-04-18 17:44 | NUR ---
RT NOTE Received PT trach on Mechanical Vent. Vent plugged to red outlet, alarms set and audible, ambu bag at bedside, spare trach at bedside. Pt tolerating setting well, no sob or distress noted. Trach patent and secure via trach ties, bilateral breath sounds noted, sx large amount of yellow thick secretions. Will continue to monitor.
[2018-04-18] MEDS: LACTOBACILLUS RHAMNOSUS GG 1 EACH CAP.SPRINK GT SCH (18:30)
--- NOTE | 2018-04-18 19:35 | NUR ---
PERFORMANCE MAKEUP ARTIST NOTE PATIENT RESTING IN BED IN STABLE CONDITION, NO DISTRESS NOTED. IV SITE ON RIGHT WRIST INTACT SALINE LOCK. SUPRAPUBIC CATHETER INTACT DRAINING YELLOW URINE, G TUBE INTACT CLAMPED. SATURATION 100% ON VENT SETTINGS. BED IN LOW LOCKED POSITION, SIDE RAILS UP FOR SAFETY, ENDORSED TO SOLAR POWER INSTALLER NURSE FOR CONTINUITY OF CARE.
[2018-04-18 20:00] VITALS: BP 131/73
--- NOTE | 2018-04-18 20:41 | NUR ---
FACULTY SUPPORT COORDINATOR INITIAL NOTES RECEIVED PT IN BED, NONVERBAL. WITH INTACT PORTEX#8 TOLERATING VENT SETTINGS: AC 12; TV 550; FIO2 40; AND PEEP 5. SPO2 100%. SR HR 80S ON TELEMONITOR. GTUBE CLAMPED, WITH SCHEDULED BOLUS Q6, SUPRAPUBIC CATH INTACT AND IN PLACED, DRAINING YELLOW COLOR URINE. WITH (R) WRIST G18 IV. HOB ELEVATED. ORIENTED TO ROOM AND USE OF CALL LIGHT. HOB ELEVATED. SAFETY MEASURES IN PLACED. CALL LIGHT WITHIN EASY REACH. WILL CONT TO MONITOR
[2018-04-18] MEDS: NA PHOS,M-B/NA PHOS,DI-BA 1 EA ENEMA RC SCH (21:25)
[2018-04-18] MEDS: ATORVASTATIN 10 MG TABLET GT SCH (21:26)
[2018-04-19 00:08] VITALS: BP 125/77
[2018-04-19] MEDS: IPRATROPIUM NEB FS 0.5 MG/2.5 ML AMPUL.NEB IH SCH ×4 (00:55→20:03)
[2018-04-19] MEDS: ALBUTEROL FS 2.5 MG/0.5 ML VIAL.NEB NEB SCH ×4 (00:55→20:04)
[2018-04-19] MEDS: D5W IV SCH ×4 (03:16→21:51)
[2018-04-19] MEDS: NAFCILLIN IV SCH ×4 (03:16→21:51)
[2018-04-19 04:00] VITALS: BP 125/77
[2018-04-19] MEDS: GLUCERNA 1.2 1,000 ML BOTTLE GT SCH ×3 (06:04→17:17)
--- NOTE | 2018-04-19 06:15 | NUR ---
SKATING RINK MANAGER CLOSING NOTES ENDORSED PT IN BED, NONVERBAL. WITH INTACT PORTEX#8 TOLERATING VENT SETTINGS: AC 12; TV 550; FIO2 40; AND PEEP 5. SPO2 100%. SR HR 80S ON TELEMONITOR. GTUBE CLAMPED, WITH SCHEDULED BOLUS Q6, SUPRAPUBIC CATH INTACT AND IN PLACED, DRAINING YELLOW COLOR URINE. WITH (R) WRIST G18 IV. HOB ELEVATED. ORIENTED TO ROOM AND USE OF CALL LIGHT. HOB ELEVATED. SAFETY MEASURES IN PLACED. CALL LIGHT WITHIN EASY REACH. WILL CONT TO MONITOR
--- NOTE | 2018-04-19 07:55 | NUR ---
RT PT RECEIVED WITH A PORTEX 8 TRACH ON THE VENT WITH NOTED SETTINGS. PT IS AWAKE BUT DOES NOT FOLLOW COMMANDS. VENT ALARMS ARE SET AND AUDIBLE WITH BVM BY BEDSIDE. DIGITAL ACCOUNT EXECUTIVE CUFF PRESSURE NOTED. PT SX SMALL THICK PALE YELLOW SECRETIONS. NO RESPIRATORY DISTRESS NOTED AT THIS TIME. Addendum: 04/19/18 at 1810 by TRINITY DAVID RT Amended: Links added.
[2018-04-19 07:56] LABS: CALCIUM, SERUM 8.7 mg/dL (8.5-10.1); CREATININE 0.7 mg/dL (0.6-1.3); POTASSIUM 4.1 mmol/L (3.5-5.1)
[2018-04-19 08:00] VITALS: BP 106/73
[2018-04-19] MEDS: LEVETIRACETAM SOL (5 ML) 100 MG/ML UDC GT SCH ×2 (08:32→22:07)
[2018-04-19] MEDS: CHLORHEXIDINE GLUCONATE 15 ML UDC MM SCH ×2 (08:32→22:08)
[2018-04-19] MEDS: LIPASE/PROTEASE/AMYLASE 1 EACH CAPSULE.DR GT SCH ×4 (08:32→22:07)
[2018-04-19] MEDS: POLYETHYLENE GLYCOL 3350 17 GM POWD.PACK GT SCH (08:32)
[2018-04-19] MEDS: CHOLECALCIFEROL 1,000 UNIT TABLET (VIT D3) GT SCH (08:33)
[2018-04-19] MEDS: METFORMIN 500 MG TABLET GT SCH ×2 (08:33→22:07)
[2018-04-19] MEDS: SENNOSIDES 8.6 MG TABLET GT SCH ×2 (08:33→16:10)
[2018-04-19] MEDS: LACTOBACILLUS RHAMNOSUS GG 1 EACH CAP.SPRINK GT SCH ×2 (08:33→16:10)
[2018-04-19] MEDS: ASPIRIN 81 MG TAB.CHEW GT SCH (08:33)
[2018-04-19] MEDS: BLOOD SUGAR DIAGNOSTIC 1 EACH STRIP VI SCH ×4 (08:36→22:08)
[2018-04-19] MEDS: NEOMY SULF/BACITRAC ZN/POLY 15 GM TUBE TP SCH (08:36)
[2018-04-19] MEDS: INSULIN GLARGINE, 100 UNIT/ML CARTRIDGE SQ SCH ×2 (08:36→21:59)
[2018-04-19] MEDS: INSULIN REGULAR, HUMAN 100 UNIT/ML 3 ML VIAL SQ PRN ×3 (08:37→17:17)
[2018-04-19] MEDS: VANCOMYCIN 1.25 GM in IV D5W 500 ML IV SCH (09:28)
[2018-04-19] MEDS: DAKINS QUARTER STRENGTH (0.125%) 480 ML BOTTLE TOP SCH ×2 (10:18→22:11)
[2018-04-19 12:00] VITALS: BP_SYST 99; BP_DIAS 55; BP_DIAS 63
[2018-04-19 16:00] VITALS: BP 97/66
--- NOTE | 2018-04-19 16:00 | NUR ---
RN NOTES DR AKHTAR NOTIFIED REGARDING DIETITIAN RECOMMENDATION FOR Q4 HOUR TF BOLUS . NO NEW ORDER GIVEN ,PT WILL STAY ON Q [address] AKHTAR ORDER .
--- NOTE | 2018-04-19 18:41 | NUR ---
RN NOTES NO SIGNIFICANT CHANGES NOTED ON THIS SHIFT , WILL ENDOSE TO RESEARCH TECH NURSE FOR CONTINUITY OF CARE .
--- NOTE | 2018-04-19 19:30 | NUR ---
TELE/RN RECEIVE PATIENT EYES OPE, OBTUNDED, NO DISTRESS NOTED, ON MECHANICAL VENTILATOR, HOB ELEVATED, WILL MONITOR.
[2018-04-19 20:00] VITALS: BP 119/77
[2018-04-19] MEDS: NA PHOS,M-B/NA PHOS,DI-BA 1 EA ENEMA RC SCH (22:08)
[2018-04-19] MEDS: ATORVASTATIN 10 MG TABLET GT SCH (22:08)
[2018-04-19] MEDS: *INSULIN REGULAR(HUMULIN R)HUM 100 UNIT/ML VIAL SQ PRN (22:10)
--- NOTE | 2018-04-19 22:21 | NUR ---
RT NOTE PATIENT WAS RECEIVED ON CONTINUOUS VENT SUPPORT ON NOTED VENT SETTINGS.HHN INLINE TREATMENT WAS GIVEN, NO ADVERSE REACTION NOTED. SUCTIONED PATIENT WITH A SMALL AMOUNT OF THIN PALE YELLOWISH SECRETIONS. POKER MANAGER PRESSURE CUFF DONE, TRACH TUBE PATENT AND SECURED.VENT PLUGGED INTO RED OUTLET. ALARMS ON AND AUDIBLE . WILL CONTINUE TO MONITOR. Addendum: 04/19/18 at 2222 by YESICA NORIEGA RT Amended: Links added.
[2018-04-19] MEDS: VANCOMYCIN 1 GM in IV D5W 250 ML IV SCH (22:24)
[2018-04-20] VITALS (9 sets, daily range): BP systolic 95–121; BP diastolic 67–85
[2018-04-20] MEDS: GLUCERNA 1.2 1,000 ML BOTTLE GT SCH ×4 (00:12→17:59)
[2018-04-20] MEDS: IPRATROPIUM NEB FS 0.5 MG/2.5 ML AMPUL.NEB IH SCH ×4 (01:42→20:07)
[2018-04-20] MEDS: ALBUTEROL FS 2.5 MG/0.5 ML VIAL.NEB NEB SCH ×4 (01:42→20:07)
--- NOTE | 2018-04-20 02:53 | NUR ---
TELE/RN GT CAME OUT WHILE CLEANING THE PATIENT, SOME FEEDING CAME OUT OF THE GT SITE, INSERTED CATHETER FROM RED AND PLACED MARGY VALVE TO CLOSE THE TUBE AND APPLIED DRESSING. FEEDING STOPPED COMING OUT FROM SITE. WILL CONTINUE TO MONITOR AND WILL MONITOR MD IN A.M.
[2018-04-20] MEDS: D5W IV SCH ×4 (03:40→21:18)
[2018-04-20] MEDS: NAFCILLIN IV SCH ×4 (03:40→21:18)
--- NOTE | 2018-04-20 05:33 | NUR ---
TELE1/RN MORNING CARE DONE, LARGE SOFT BM NOTED, CLEANED AND MADE DRY, TOTAL LINEN CHANGE RENDERED, GOOD SKIN CARE DONE, REPOSITIONED TO COMFORT. WILL CONTINUE TO MONITOR.
--- NOTE | 2018-04-20 06:00 | NUR ---
TELE/RN PATIENT APPEAR SLEEPING, APPEAR COMFORTABLE, NO SIGNS OF DISTRESS NOTED, NO FEEDING IS LEAKING AT THE GT SITE, ALL NEEDS ATTENDED AT THIS TIME, WILL CONTINUE TO MONITOR.
--- NOTE | 2018-04-20 06:00 | NUR ---
TELE1/RN GLUCERNA GT WAS NOT GIVEN, THE GT GOT PULLED OUT.
--- NOTE | 2018-04-20 06:25 | NUR ---
1338 DR. AKHTAR NOTIFIED THAT PT'S PEG TUBE CAME OUT DURING AM CARE VIA TELEPHONE. AWAITING CALL BACK.
--- NOTE | 2018-04-20 07:10 | NUR ---
SWITCHBOARD OPERATOR RECEPTIONIST OPENING NOTES RECEIVED PT LYING ON BED WITH VENT AND TRACH SETTINGS.ON TELE HR IS 68 WITH SR.NO SOB AND ACUTE DISTRESS NOTED.PT CAN OPEN EYES AND OBTUNDED.SUPRA PUBIC CATHETER IS PRESENT AND INPLACE WITH CLEAR YELLOW COLOR URINE.PEG TUBE CAME OUT AND LIBRARY ATTENDANT RN PLACED RED CATHETER WITH MARGY VALVE TO MAKE STOMA OPEN.MILD OOZING IS NOTED IN THAT SITE.BS IS IN NORMAL LIMIT.IV LINE IS ON RIGHT WRIST G 18,SITE IS CLEAN,DRY AND INTACT.SAFETY IS MAINTAINED AT ALL TIMES.BED IS IN LOW POSITION AND LOCKED.CALL LIGHT IS WITHIN REACH.WILL CONTINUE TO MONITOR THE PT CLOSELY.
[2018-04-20 07:43] LABS: CALCIUM, SERUM 8.6 mg/dL (8.5-10.1); CREATININE 0.5 mg/dL (0.6-1.3); POTASSIUM 3.9 mmol/L (3.5-5.1)
--- NOTE | 2018-04-20 07:50 | NUR ---
GENERAL EDUCATION INSTRUCTOR NOTES SAID HE WILL COME AND PUT THE PEG TUBE.WAITING FOR THE
--- NOTE | 2018-04-20 07:58 | NUR ---
RT PT RECEIVED WITH A PORTEX 8 TRACH ON THE VENT WITH NOTED SETTINGS. PT IS AWAKE BUT DOES NOT FOLLOW COMMANDS. VENT ALARMS ARE SET AND AUDIBLE WITH BVM BY BEDSIDE. SHELF DRIER OPERATOR CUFF PRESSURE NOTED. PT SX MODERATE THICK PALE YELLOW SECRETIONS. NO RESPIRATORY DISTRESS NOTED AT THIS TIME. Addendum: 04/20/18 at 1800 by TRINITY DAVID RT Amended: Links added.
[2018-04-20] MEDS: BLOOD SUGAR DIAGNOSTIC 1 EACH STRIP VI SCH ×4 (08:58→21:25)
[2018-04-20] MEDS: INSULIN GLARGINE, 100 UNIT/ML CARTRIDGE SQ SCH ×2 (08:59→21:24)
[2018-04-20] MEDS: DAKINS QUARTER STRENGTH (0.125%) 480 ML BOTTLE TOP SCH ×2 (09:03→21:25)
[2018-04-20] MEDS: NEOMY SULF/BACITRAC ZN/POLY 15 GM TUBE TP SCH (09:03)
[2018-04-20] MEDS: CHLORHEXIDINE GLUCONATE 15 ML UDC MM SCH ×2 (09:04→21:18)
--- NOTE | 2018-04-20 09:16 | NUR ---
SERVICE CENTER SUPERVISOR NOTES PT'S PEG TUBE IS STILL OUT AND WE ARE HOLDING ALL THE 9AM MEDS AND INSULIN LANTUS.
[2018-04-20] MEDS: VANCOMYCIN 1 GM in IV D5W 250 ML IV SCH ×2 (09:36→21:18)
[2018-04-20] MEDS: METFORMIN 500 MG TABLET GT SCH ×2 (10:43→21:17)
[2018-04-20] MEDS: POLYETHYLENE GLYCOL 3350 17 GM POWD.PACK GT SCH (10:43)
[2018-04-20] MEDS: LACTOBACILLUS RHAMNOSUS GG 1 EACH CAP.SPRINK GT SCH ×2 (10:43→16:21)
[2018-04-20] MEDS: SENNOSIDES 8.6 MG TABLET GT SCH ×2 (10:45→16:21)
[2018-04-20] MEDS: CHOLECALCIFEROL 1,000 UNIT TABLET (VIT D3) GT SCH (10:45)
[2018-04-20] MEDS: LIPASE/PROTEASE/AMYLASE 1 EACH CAPSULE.DR GT SCH ×4 (10:45→21:17)
--- NOTE | 2018-04-20 11:15 | NUR ---
PROGRAM CLERK NOTES SEEN THE PT AND INSERTED G TUBE 18 FR,ORDERED NOT TO NEED THE STAT X RAY AND CAN RESUME THE FEEDING ORDERED.NEW ORDERS NOTED AND CARRIED OUT. Addendum: 04/20/18 at 1133 by FAREED NUÑEZ RN ORDERED TO GIVE KEPPRA AND ASPIRIN DUE AT 0900 NOW.
[2018-04-20] MEDS: LEVETIRACETAM SOL (5 ML) 100 MG/ML UDC GT SCH ×2 (11:52→21:17)
[2018-04-20] MEDS: ASPIRIN 81 MG TAB.CHEW GT SCH (11:53)
--- NOTE | 2018-04-20 12:00 | NUR ---
SENIOR PAYROLL ADMINISTRATOR NOTES BS IS [id number],INSULIN REGULAR IS NOT IN PT CASSETTE.CALLED PHARMACY.SAID WILL DELIVER SOON.
--- NOTE | 2018-04-20 17:30 | NUR ---
SENIOR COMPLIANCE OFFICER NOTES REGULAR INSULIN IS NOT YET DELIVERED.CALLED THE PHARMACY.WAITING TO DELIVER .
[2018-04-20] MEDS: INSULIN REGULAR, HUMAN 100 UNIT/ML 3 ML VIAL SQ PRN ×2 (17:57→22:40)
--- NOTE | 2018-04-20 18:54 | NUR ---
EMBEDDED SYSTEMS ENGINEER CLOSING NOTES PT IS LYING ON BED WITH VENT SETTINGS.RESPIRATION IS EVEN AND NON LABORED.WITH SUPRAPUBIC CATHETER AND G TUBE IS IN PLACE.BOLUS FEEDING IS CONTINUOS.ALL THE PM MED ARE GIVEN.ENDORSED TO TRAVEL MED SURG RN RN FOR AL.
--- NOTE | 2018-04-20 19:26 | NUR ---
FUR BUYER NOTE PATIENT RECEIVED FROM DAY SHIFT, IN BED OBTUNDED, EYES OPENING SPONTANEOUSLY. VENT SETTINGS PRESCRIBED, CATHETERS/ IV ACCESS PATENT. PATIENT IN NO APPARENT DISTRESS, BREATHING EVEN UNLABORED. GTUBE PATENT, WITH SLIGHTLY OOZING SITE. PATIENT ON TELE MONITOR SR IN THE 80'S. RN WILL CONTINUE TO MONITOR.
[2018-04-20] MEDS: ATORVASTATIN 10 MG TABLET GT SCH (21:24)
[2018-04-20] MEDS: NA PHOS,M-B/NA PHOS,DI-BA 1 EA ENEMA RC SCH (21:25)
[2018-04-21] VITALS (7 sets, daily range): BP systolic 100–117; BP diastolic 68–83
[2018-04-21] MEDS: GLUCERNA 1.2 1,000 ML BOTTLE GT SCH ×4 (00:29→17:25)
[2018-04-21] MEDS: ALBUTEROL FS 2.5 MG/0.5 ML VIAL.NEB NEB SCH ×4 (01:19→19:35)
[2018-04-21] MEDS: IPRATROPIUM NEB FS 0.5 MG/2.5 ML AMPUL.NEB IH SCH ×4 (01:19→19:35)
[2018-04-21] MEDS: D5W IV SCH ×4 (04:15→20:45)
[2018-04-21] MEDS: NAFCILLIN IV SCH ×4 (04:15→20:45)
[2018-04-21 06:22] LABS: CALCIUM, SERUM 8.8 mg/dL (8.5-10.1); CREATININE 0.6 mg/dL (0.6-1.3); POTASSIUM 4.1 mmol/L (3.5-5.1)
[2018-04-21] MEDS: BLOOD SUGAR DIAGNOSTIC 1 EACH STRIP VI SCH ×4 (06:47→21:17)
[2018-04-21] MEDS: INSULIN REGULAR, HUMAN 100 UNIT/ML 3 ML VIAL SQ PRN ×3 (06:49→17:28)
--- NOTE | 2018-04-21 07:30 | NUR ---
RN NOTES RECEIVED PATIENT IN BED ON [facility] VENT WITH BREATHING NORMAL, EVEN AND UNLABORED. NO SOB NOTED. NO ACUTE DISTRESS NOTED.VENT SETTING REVIEWED AND VERIFIED, TOLERATED WELL. AFEBRILE. TELE MONITOR REVEALS SR, HR=74. IV IS PATENT AND INTACT, NO INFILTRATION NOTED. BOWEL SOUND PRESENT. PULSES PRESENT. GT IS PATENT AND INTACT. ASPIRATION PRECAUTION TAKEN. HOB ELEVATED. SUPRAPUBIC CATH IS PATENT AND INTACT, DRAINING WITH GRAVITY. KEPT CLEAN, DRY AND COMFORTABLE. ALL NEEDS ATTENDED. SAFETY MEASURE OBSERVED. CALL LIGHT WITH IN REACH. WILL CONT TO MONITOR.
--- NOTE | 2018-04-21 07:52 | NUR ---
RT Male pt received trach'd and on [facility] vent w charted settings. Vent is plugged into red outlet w ambubag @ hob. Alarms are set and audible. Trach is secure and patent. Delinquency Counselor done. Hhn tx given and pt sx'd w no adverse reactions. No respiratory distress noted @ this time. Will continue to monitor. Addendum: 04/21/18 at 1128 by MOISES MORENO RT Amended: Links added.
--- NOTE | 2018-04-21 08:16 | NUR ---
WOUND CARE CONSULT WOUND CARE RECEIVED CONSULT FOR WOUNDS. WOUND CARE WILL DEFER CONSULT AND ALL TREATMENT PLANS TO PLASTIC SURGICAL TEAM WHO ARE CURRENTLY FOLLOWING THIS PATIENT. PATIENT WITH JESSIE AT 10, ALL PRESSURE ULCER PREVENTION MEASURES ARE NOTED TO BE IN PLACE. WILL SEE PRN.
[2018-04-21] MEDS: ASPIRIN 81 MG TAB.CHEW GT SCH (09:35)
[2018-04-21] MEDS: POLYETHYLENE GLYCOL 3350 17 GM POWD.PACK GT SCH (09:36)
[2018-04-21] MEDS: LEVETIRACETAM SOL (5 ML) 100 MG/ML UDC GT SCH ×2 (09:38→21:17)
[2018-04-21] MEDS: LACTOBACILLUS RHAMNOSUS GG 1 EACH CAP.SPRINK GT SCH ×2 (09:38→17:23)
[2018-04-21] MEDS: LIPASE/PROTEASE/AMYLASE 1 EACH CAPSULE.DR GT SCH ×4 (09:38→21:17)
[2018-04-21] MEDS: SENNOSIDES 8.6 MG TABLET GT SCH ×2 (09:38→17:23)
[2018-04-21] MEDS: METFORMIN 500 MG TABLET GT SCH ×2 (09:38→21:17)
[2018-04-21] MEDS: CHOLECALCIFEROL 1,000 UNIT TABLET (VIT D3) GT SCH (09:38)
[2018-04-21] MEDS: DAKINS QUARTER STRENGTH (0.125%) 480 ML BOTTLE TOP SCH ×2 (09:39→21:24)
[2018-04-21] MEDS: NEOMY SULF/BACITRAC ZN/POLY 15 GM TUBE TP SCH (09:40)
[2018-04-21] MEDS: CHLORHEXIDINE GLUCONATE 15 ML UDC MM SCH ×2 (09:40→21:17)
[2018-04-21] MEDS: VANCOMYCIN 1 GM in IV D5W 250 ML IV SCH ×2 (09:52→21:25)
[2018-04-21] MEDS: INSULIN GLARGINE, 100 UNIT/ML CARTRIDGE SQ SCH ×2 (09:53→21:18)
--- NOTE | 2018-04-21 19:10 | NUR ---
TELE/RN INITIAL NOTES RECEIVED PT IN BED, NONVERBAL, OBTUNDED. SR HR 70S ON TELEMONITOR. WITH INTACT PORTEX #8, TOLERATING VENT SETTINGS: AC 12; TV 550; FIO2 40; PEEP 5. SPO2 100%. GTUBE CLAMPED, INTACT AND PATENT. SUPRAPUBIC CATH INTACT AND IN PLACED. (R) HAND G22 HEPLOCK INTACT AND PATENT. HOB ELEVATED. SAFETY MEASURES IN PLACED. CALL LIGHT WITHIN EASY REACH. WILL CONT TO MONITOR,
--- NOTE | 2018-04-21 19:24 | NUR ---
RN NOTES PATIENT ENDORSED TO NEXT SHIFT IN STABLE CONDITION FOR CONTINUITY OF CARE. WILL CONT TO MONITOR.
[2018-04-21] MEDS: ATORVASTATIN 10 MG TABLET GT SCH (21:17)
[2018-04-21] MEDS: NA PHOS,M-B/NA PHOS,DI-BA 1 EA ENEMA RC SCH (21:18)
[2018-04-21] MEDS: *INSULIN REGULAR(HUMULIN R)HUM 100 UNIT/ML VIAL SQ PRN (21:21)
[2018-04-22] VITALS: BP 133/86
[2018-04-22] MEDS: GLUCERNA 1.2 1,000 ML BOTTLE GT SCH ×4 (00:05→17:35)
[2018-04-22] MEDS: IPRATROPIUM NEB FS 0.5 MG/2.5 ML AMPUL.NEB IH SCH ×4 (01:58→19:09)
[2018-04-22] MEDS: ALBUTEROL FS 2.5 MG/0.5 ML VIAL.NEB NEB SCH ×4 (01:58→19:09)
[2018-04-22] MEDS: D5W IV SCH ×4 (02:34→21:23)
[2018-04-22] MEDS: NAFCILLIN IV SCH ×4 (02:34→21:23)
[2018-04-22 04:00] VITALS: BP 143/95
--- NOTE | 2018-04-22 07:00 | NUR ---
BLACK PULLER OPENING NOTES RECEIVED REPORT FROM PM NURSE. PT ON VENT MD ORDERED. O2 SAT WNL. PT ON TELE SR. VS WNL. R HAND #22 GAUGE INFILTRATED. SUPRAPUBIC CATH DRAINING CLOUDY, YELLOW BROWN URINE. WILL FOLLOW UP WITH IV PLACEMENT. BED IN LOCKED/LOWEST POSITION. CALL LIGHT IN REACH. WILL CONT TO MONITOR.
--- NOTE | 2018-04-22 07:00 | NUR ---
RN NOTES PT IN STABLE CONDITION. NO ACUTE CHANGES THROUGHOUT SHIFT. SAFETY MEASURES OBSERVED AT ALL TIMES. ALL NEEDS ANTICIPATED. ENDORSED TO AM SHIFT RN FOR AL
[2018-04-22] MEDS: BLOOD SUGAR DIAGNOSTIC 1 EACH STRIP VI SCH ×4 (07:30→21:39)
[2018-04-22 08:00] VITALS: BP 120/76
[2018-04-22 08:08] LABS: CALCIUM, SERUM 7.9 mg/dL (8.5-10.1); CREATININE 0.6 mg/dL (0.6-1.3); POTASSIUM 4.2 mmol/L (3.5-5.1)
[2018-04-22] MEDS: NEOMY SULF/BACITRAC ZN/POLY 15 GM TUBE TP SCH (09:00)
--- NOTE | 2018-04-22 09:00 | NUR ---
ENT NURSE NOTES DR AKHTAR ROUNDING WITH PT. NO NEW ORDERS GIVEN
[2018-04-22] MEDS: DAKINS QUARTER STRENGTH (0.125%) 480 ML BOTTLE TOP SCH ×2 (10:00→21:37)
[2018-04-22] MEDS: ASPIRIN 81 MG TAB.CHEW GT SCH (10:38)
[2018-04-22] MEDS: LIPASE/PROTEASE/AMYLASE 1 EACH CAPSULE.DR GT SCH ×4 (10:38→21:23)
[2018-04-22] MEDS: CHLORHEXIDINE GLUCONATE 15 ML UDC MM SCH ×2 (10:38→21:23)
[2018-04-22] MEDS: POLYETHYLENE GLYCOL 3350 17 GM POWD.PACK GT SCH (10:38)
[2018-04-22] MEDS: LEVETIRACETAM SOL (5 ML) 100 MG/ML UDC GT SCH ×2 (10:39→21:23)
[2018-04-22] MEDS: SENNOSIDES 8.6 MG TABLET GT SCH ×2 (10:39→17:05)
[2018-04-22] MEDS: LACTOBACILLUS RHAMNOSUS GG 1 EACH CAP.SPRINK GT SCH ×2 (10:39→17:06)
[2018-04-22] MEDS: METFORMIN 500 MG TABLET GT SCH ×2 (10:39→21:23)
[2018-04-22] MEDS: INSULIN GLARGINE, 100 UNIT/ML CARTRIDGE SQ SCH ×2 (10:48→21:36)
[2018-04-22] MEDS: VANCOMYCIN 1 GM in IV D5W 250 ML IV SCH (11:11)
[2018-04-22 12:00] VITALS: BP 129/85
[2018-04-22] MEDS: INSULIN REGULAR, HUMAN 100 UNIT/ML 3 ML VIAL SQ PRN ×2 (12:53→17:31)
[2018-04-22 16:00] VITALS: BP 151/93
--- NOTE | 2018-04-22 16:45 | NUR ---
RT NOTE: TRACH CHANGED TO SHILEY 8 DISTAL XL TRACH PER . SMALL AMOUNT OF BLOOD AND NO REDNESS NOTED. NURSE NOTIFIED.
--- NOTE | 2018-04-22 18:59 | NUR ---
FLOOR DIRECTOR NOTES REPORT GIVEN TO PM NURSE FOR AL. PT IN BED, TOLERATED CHANGE OF TRACH WELL. PAIN MEDS GIVEN. O2 SAT WNL. PT NOT IN RESP DISTRESS. GTUBE FUNCTIONING WELL. BED IN LOCKED/LOWEST POSITION. CALL LIGHT IN REACH. ALL NEEDS ATTENDED TO.
[2018-04-22 20:00] VITALS: BP 127/80
--- NOTE | 2018-04-22 20:26 | NUR ---
EQUIPMENT CLEANER AND TESTER OPENING NOTES RECEIVED REPORT FROM ANDREW BACK. PATIENT OBTUNDED BUT RESPONDS TO TACTILE STIMULI. BREATHING EVEN & UNLABORED W/ VENT INTACT & TOLERATING VENT SETTINGS AC 12, TV 550, FIO2 40%, PEEP 5. ON TELE W/ SINUS RHYTHM, HR 77. RIGHT UPPER ARM PICC LINE INTACT & PATENT W/ DRESSING CDI, TKO. G-TUBE PATENT & FLUSHING WELL. MINIMAL BLEEDING NOTED AROUND STOMA, DRESSING CHANGED. NO S/S OF PAIN OR DISCOMFORT. SAFETY MEASURES IN PLACE W/ SIDE RAILS UP & BED ALARM ON. HOB ELEVATED FOR ASPIRATION PRECAUTIONS. WILL CONTINUE TO MONITOR.
--- NOTE | 2018-04-22 21:00 | NUR ---
FUNERAL PREARRANGEMENT COUNSELOR NOTES CALLED AFTER HOURS PHARMACY & SPOKE TO PHARMACISTMANISHA, REGARDING PATIENT'S 2100 VANCO DOSE OF 1GM. VANCO TROUGH = 20 & PER PHARMACIST'S NOTES, SHE WILL ADJUST DOSE TO 750MG Q12H. BUT IN EMAR, DOSE STILL SHOWED 1GM. CLARIFIED W/ AFTER HOURS PHARMACIST, MANISHA, AND SHE INSTRUCTED TO HOLD 1GM VANCO DOSE & GIVE 0.75GM X1 INSTEAD & SHE WILL INFORM HOSPITAL PHARMACY IN AM.
[2018-04-22] MEDS: ATORVASTATIN 10 MG TABLET GT SCH (21:23)
[2018-04-22] MEDS: NA PHOS,M-B/NA PHOS,DI-BA 1 EA ENEMA RC SCH (21:23)
[2018-04-22] MEDS: *INSULIN REGULAR(HUMULIN R)HUM 100 UNIT/ML VIAL SQ PRN (21:40)
[2018-04-22] MEDS ORDERED: VANCOMYCIN 1 GM VIAL ONE (23:34)
[2018-04-22] MEDS: VANCOMYCIN HCL 0.75 GM in IV D5W 250 ML IV SCH (23:37)
[2018-04-23] MEDS: GLUCERNA 1.2 1,000 ML BOTTLE GT SCH ×4 (00:21→17:48)
[2018-04-23] MEDS: ALBUTEROL FS 2.5 MG/0.5 ML VIAL.NEB NEB SCH ×4 (00:33→20:29)
[2018-04-23] MEDS: IPRATROPIUM NEB FS 0.5 MG/2.5 ML AMPUL.NEB IH SCH ×4 (00:33→20:24)
[2018-04-23] MEDS: D5W IV SCH ×3 (03:03→16:16)
[2018-04-23] MEDS: NAFCILLIN IV SCH ×3 (03:03→16:16)
[2018-04-23 04:00] VITALS: BP 108/88
[2018-04-23 07:01] LABS: CALCIUM, SERUM 8.6 mg/dL (8.5-10.1); CREATININE 0.4 mg/dL (0.6-1.3)
[2018-04-23] MEDS: BLOOD SUGAR DIAGNOSTIC 1 EACH STRIP VI SCH ×3 (07:30→17:47)
[2018-04-23 08:00] VITALS: BP 105/72
[2018-04-23] MEDS: POLYETHYLENE GLYCOL 3350 17 GM POWD.PACK GT SCH (09:00)
[2018-04-23] MEDS: SENNOSIDES 8.6 MG TABLET GT SCH ×2 (09:00→17:47)
[2018-04-23] MEDS: LEVETIRACETAM SOL (5 ML) 100 MG/ML UDC GT SCH (09:59)
[2018-04-23] MEDS: VANCOMYCIN HCL 0.75 GM in IV D5W 250 ML IV SCH (09:59)
[2018-04-23] MEDS: METFORMIN 500 MG TABLET GT SCH (10:00)
[2018-04-23] MEDS: LIPASE/PROTEASE/AMYLASE 1 EACH CAPSULE.DR GT SCH ×3 (10:00→17:40)
[2018-04-23] MEDS: ASPIRIN 81 MG TAB.CHEW GT SCH (10:00)
[2018-04-23] MEDS: LACTOBACILLUS RHAMNOSUS GG 1 EACH CAP.SPRINK GT SCH ×2 (10:00→17:40)
[2018-04-23] MEDS: DAKINS QUARTER STRENGTH (0.125%) 480 ML BOTTLE TOP SCH (10:05)
[2018-04-23] MEDS: NEOMY SULF/BACITRAC ZN/POLY 15 GM TUBE TP SCH (10:05)
[2018-04-23] MEDS: INSULIN GLARGINE, 100 UNIT/ML CARTRIDGE SQ SCH (10:17)
[2018-04-23] MEDS: INSULIN REGULAR, HUMAN 100 UNIT/ML 3 ML VIAL SQ PRN (10:18)
[2018-04-23] MEDS: CHLORHEXIDINE GLUCONATE 15 ML UDC MM SCH (10:27)
[2018-04-23 16:00] VITALS: BP 124/81
--- NOTE | 2018-04-23 18:52 | NUR ---
rn end notes pt remains obtunded; trach and vent settings tolerated well. hob kept elevated. all meds given thru patent gt. wound care done with pictures taken and filed. turned and repositioned. all needs attended. safety ensured. sinus rhythm on the monitor. will endorse to next shift for continuity of care in stable condition
--- NOTE | 2018-04-23 19:30 | NUR ---
RECEIVED PATIENT IN BED AWAKE; OBTUNDED. NO ACUTE DISTRESS NOTED. NO SIGNS OF PAIN NOTED. VENT SETTINGS ORDERED. IV SITE PATENT, INTACT; FLUSHED. GT PATENT, INTACT; IN PLACE VIA AUSCULTATION. NO GTF RESIDUALS ASPIRATED. SUPRAPUBIC CATH PATENT, INTACT; DRAINING YELLOW URINE. WILL CONTINUE TO MONITOR. Addendum: 04/23/18 at 2116 by MARY MARIE RN RIGHT HIP DRESSING INTACT; REINFORCED.
[2018-04-23 20:00] VITALS: BP 124/83
--- NOTE | 2018-04-23 20:45 | NUR ---
REPORT [facility] FOR CONTINUATION OF CARE.
--- NOTE | 2018-04-23 21:04 | NUR ---
PATIENT PICKED UP BY RAMAKRISHNA WITH RT. PATIENT IN STABLE CONDITION. BELONGINGS PACKED AND GIVEN TO AMBULANCE STAFF. DISCHARGE PAPERS ALSO GIVEN TO AMBULANCE STAFF.
== END 2018-04-23 21:04 | DRG 710 ==
LOC: ER 14:03 → TELE1 17:48
PROVIDERS: ADMIT Internal Medicine; ATTEND Internal Medicine
PROC: 0KBN0ZZ Excision of Right Hip Muscle, Open Approach (ICD-10-PCS; principal; 2018-04-17)
PROC: 5A1955Z Respiratory Ventilation, Greater than 96 Consecutive Hours (ICD-10-PCS; principal; 2018-04-17)
PROC: 0D20XUZ Change Feeding Device in Upper Intestinal Tract, External Approach (ICD-10-PCS; 2018-04-20)
PROC: B546ZZA Ultrasonography of Right Subclavian Vein, Guidance (ICD-10-PCS; 2018-04-22)
PROC: 05H533Z Insertion of Infusion Device into Right Subclavian Vein, Percutaneous Approach (ICD-10-PCS; 2018-04-22)
DX: A41.9 Sepsis, unspecified organism (principal); G93.1 Anoxic brain damage, not elsewhere classified; Z99.11 Dependence on respirator [ventilator] status; J96.11 Chronic respiratory failure with hypoxia; R53.2 Functional quadriplegia; Z93.0 Tracheostomy status; E11.621 Type 2 diabetes mellitus with foot ulcer; I48.0 Paroxysmal atrial fibrillation; E11.65 Type 2 diabetes mellitus with hyperglycemia; L03.115 Cellulitis of right lower limb; L03.317 Cellulitis of buttock; K86.81 Exocrine pancreatic insufficiency; L02.415 Cutaneous abscess of right lower limb; R13.10 Dysphagia, unspecified; Z86.74 Personal history of sudden cardiac arrest; I10 Essential (primary) hypertension; I25.10 Atherosclerotic heart disease of native coronary artery without angina pectoris; N39.0 Urinary tract infection, site not specified; L02.31 Cutaneous abscess of buttock; J98.11 Atelectasis; Z79.4 Long term (current) use of insulin; Z86.73 Personal history of transient ischemic attack (TIA), and cerebral infarction without residual deficits; N40.0 Benign prostatic hyperplasia without lower urinary tract symptoms; S30.811A Abrasion of abdominal wall, initial encounter; X58.XXXA Exposure to other specified factors, initial encounter; Y93.9 Activity, unspecified; Y92.129 Unspecified place in nursing home as the place of occurrence of the external cause; L97.521 Non-pressure chronic ulcer of other part of left foot limited to breakdown of skin; G40.409 Other generalized epilepsy and epileptic syndromes, not intractable, without status epilepticus; S31.30XA Unspecified open wound of scrotum and testes, initial encounter; K86.89 Other specified diseases of pancreas; Z43.1 Encounter for attention to gastrostomy
CPT/HCPCS: 31720; 36415; 71045-TC; 73501; 73700-TC; 80048-TC; 80076-TC; 80202-TC; 81000-TC; 82962-TC; 83690-TC; 83735-TC; 84100-TC; 85025-TC; 85730-TC; 86850-TC; 86921-TC; 87040-TC; 87081-TC; 87086-TC; 87186-TC; 94002-TC; 94003-TC; 94760-TC; 94762-TC; 99082-TC; A4216; A6253; A6402; A6403; G0378; J0690; J0696; J1815; J1953; J3370; J3490; J7060